=== PATIENT | male | born 1970 | race Caucasian/White ===

== ENCOUNTER 2021-10-18 08:15 | Emergency (ER) | payer BC ==
[2021-10-18 08:21] VITALS: BP 142/76; PULSE 110; RESP 18; TEMP 97.7
[2021-10-18] MEDS ORDERED: DEXAMETHASONE SOD PHOSPHATE 10 MG/ML 1 ML VIAL IM STA (08:29)
--- NOTE | 2021-10-18 08:35 | ED ---
General Adult HPI - General Chief complaint: Skin/Abscess/Foreign Body Stated complaint: allergic reaction Time Seen by Provider: 10/18/21 08:17 Source: patient, RN notes reviewed, old records reviewed Mode of arrival: ambulatory Limitations: no limitations - History of Present Illness Initial comments: 51-year-old male presented for evaluation of rash. Rash began on the patient's forearms, and his neck after he had been removing some brush and some khris that were covering at tree. He is not certain if this was poison carrie. He developed a rash shortly after this with some swelling, and irritation of neck, forearms, and armpits. He did note some yellow drainage and weeping fluid, from his neck. - Related Data Previous Rx's Medication Instructions Recorded predniSONE 50 mg PO DAILY #5 tab 10/18/21 Allergies Allergy/AdvReac Type Severity Reaction Status Date / Time acetaminophen [From Vicodin] AdvReac Itching Verified 10/18/21 08:21 hydrocodone [From Vicodin] AdvReac Itching Verified 10/18/21 08:21 Review of Systems ROS Statement: Those systems with pertinent positive or pertinent negative responses have been documented in the HPI. ROS Other: All systems not noted in ROS Statement are negative. Past Medical History Past Medical History: No Reported History History of Any Multi-Drug Resistant Organisms: None Reported Past Surgical History: Hernia Repair Past Psychological History: No Psychological Hx Reported Smoking Status: Current every day smoker Past Alcohol Use History: Occasional Past Drug Use History: None Reported General Exam Limitations: no limitations General appearance: alert, in no apparent distress Head exam: Present: atraumatic, normocephalic Eye exam: Present: normal appearance, PERRL ENT exam: Present: normal exam Neck exam: Present: normal inspection. Absent: tenderness, meningismus Respiratory exam: Present: normal lung sounds bilaterally. Absent: respiratory distress, wheezes Cardiovascular Exam: Present: regular rate, normal rhythm GI/Abdominal exam: Present: soft. Absent: distended, tenderness Extremities exam: Present: normal capillary refill. Absent: pedal edema Neurological exam: Present: alert, oriented X3, CN II-XII intact, normal gait. Absent: motor sensory deficit Psychiatric exam: Present: normal affect, normal mood Skin exam: Present: vesicles (Vesicular bullous rash on the neck and bilateral forearms) Course Vital Signs 10/18/21 08:16 Temperature 97.7 F Pulse Rate 110 H Respiratory 18 Rate Blood Pressure 142/76 O2 Sat by Pulse 96 Oximetry Medical Decision Making - Medical Decision Making 51-year-old male with history and rash concerning for poison carrie exposure. Patient had taken topical steroids, Benadryl and Claritin at home without relief. He will be prescribed oral steroids. He should follow-up with his primary care physician. Disposition Clinical Impression: Contact dermatitis, Poison carrie dermatitis Disposition: HOME SELF-CARE Condition: Good Instructions (If sedation given, give patient instructions): Poison Carrie (ED) Additional Instructions: . Please return with worsening or changing symptoms. Prescriptions: predniSONE 50 mg PO DAILY #5 tab Is patient prescribed a controlled substance at d/c from ED?: No Referrals: None,Stated [Primary Care Provider] - 1-2 days Time of Disposition: 08:34
== END 2021-10-18 08:53 | disposition home or self-care (01) ==
LOC: EC 08:15
DX: L23.7 Allergic contact dermatitis due to plants, except food (principal); F17.200 Nicotine dependence, unspecified, uncomplicated
CPT/HCPCS: 99282; 96372; J1100

== ENCOUNTER 2021-10-24 08:33 | Emergency (ER) | payer BC ==
[2021-10-24 08:42] VITALS: BP 120/83; PULSE 86; RESP 18; TEMP 97.8
[2021-10-24] MEDS ORDERED: methylPREDNISolone SOD SUCCI 125 MG/2 ML VIAL IM ONE (08:50)
--- NOTE | 2021-10-24 08:52 | ED ---
Skin/Abscess/FB HPI - General Chief complaint: Skin/Abscess/Foreign Body Stated complaint: Revisit-rash Time Seen by Provider: 10/24/21 08:42 Source: patient, RN notes reviewed Mode of arrival: ambulatory Limitations: no limitations - History of Present Illness Initial comments: 51-year-old male presents emergency Department chief complaint of her rash. He is seeing a 60s ago for rashes diagnosis poison carrie. He states is getting better but states that the rash returned. Steroids. Patient is very itchy swelling the cat in the past. Patient states he was working on the lemus. Patient denies any difficulty breathing. - Related Data Previous Rx's Medication Instructions Recorded predniSONE 50 mg PO DAILY #5 tab 10/18/21 predniSONE 10 mg PO DIRECTED #30 tab 10/24/21 predniSONE 10 mg PO DIRECTED #30 tab 10/24/21 Allergies Allergy/AdvReac Type Severity Reaction Status Date / Time acetaminophen [From Vicodin] AdvReac Itching Verified 10/24/21 08:41 hydrocodone [From Vicodin] AdvReac Itching Verified 10/24/21 08:41 Review of Systems ROS Statement: Those systems with pertinent positive or pertinent negative responses have been documented in the HPI. ROS Other: All systems not noted in ROS Statement are negative. Past Medical History Past Medical History: No Reported History History of Any Multi-Drug Resistant Organisms: None Reported Past Surgical History: Hernia Repair Past Psychological History: No Psychological Hx Reported Smoking Status: Current every day smoker Past Alcohol Use History: Occasional Past Drug Use History: None Reported General Exam Limitations: no limitations General appearance: alert, in no apparent distress Head exam: Present: atraumatic, normocephalic, normal inspection Eye exam: Present: normal appearance, PERRL, EOMI. Absent: scleral icterus, conjunctival injection, periorbital swelling ENT exam: Present: normal exam, normal oropharynx, mucous membranes moist Neck exam: Present: normal inspection, full ROM. Absent: tenderness, meningismus, lymphadenopathy Respiratory exam: Present: normal lung sounds bilaterally. Absent: respiratory distress, wheezes, rales, rhonchi, stridor Cardiovascular Exam: Present: regular rate, normal rhythm, normal heart sounds. Absent: systolic murmur, diastolic murmur, rubs, gallop, clicks GI/Abdominal exam: Present: soft, normal bowel sounds. Absent: distended, ten derness, guarding, rebound, rigid Neurological exam: Present: alert Skin exam: Present: warm, dry, intact, normal color, rash Course Vital Signs 10/24/21 08:38 Temperature 97.8 F Pulse Rate 86 Respiratory 18 Rate Blood Pressure 120/83 O2 Sat by Pulse 96 Oximetry Medical Decision Making - Medical Decision Making Patient we given steroid prescription. Patient advised to continue antihistamines. Patient will return for worsening changes symptoms. Disposition Clinical Impression: Poison carrie dermatitis Disposition: HOME SELF-CARE Condition: Stable Instructions (If sedation given, give patient instructions): Poison Carrie (ED) Additional Instructions: Please return to the Emergency Department if symptoms worsen or any other concerns. Prescriptions: predniSONE 10 mg PO DIRECTED #30 tab predniSONE 10 mg PO DIRECTED #30 tab Is patient prescribed a controlled substance at d/c from ED?: No Referrals: Juventino Gentile DO [Primary Care Provider] - 1-2 days Time of Disposition: 08:52
== END 2021-10-24 09:01 | disposition home or self-care (01) ==
LOC: EC 08:33
DX: L23.7 Allergic contact dermatitis due to plants, except food (principal); F17.200 Nicotine dependence, unspecified, uncomplicated; Z88.5 Allergy status to narcotic agent; Z88.6 Allergy status to analgesic agent; Z72.89 Other problems related to lifestyle
CPT/HCPCS: 99282; 96372; J2930

== ENCOUNTER 2024-08-29 22:15 | Inpatient (IN) | payer BC ==
[2024-08-29] MEDS: KETOROLAC 15 MG/ML 1 ML VIAL IVP STA (23:46)
--- NOTE | 2024-08-30 00:10 | ED ---
Abdominal Pain HPI <Heather Hinds - Last Filed: 08/30/24 08:40> - General Source: patient Mode of arrival: ambulatory Limitations: no limitations <MillerLaura - Last Filed: 08/30/24 18:59> - General Chief Complaint: Abdominal Pain Stated Complaint: Abd pain - History of Present Illness Initial Comments: Patient is a 54-year-old male past medical history of diabetes presenting today for epigastric abdominal pain x 1 night. Associated nonbloody nonbilious emesis. No melena or hematochezia. No history of alcoholism. Surgical history includes a prior hernia repair. Chest pain or shortness of breath. Denies new jaundice. (Heather) 54 year old male with past medical history of Diabetes who presents with abdominal pain with associated nausea & vomiting. States it started around 4:3 0pm and has been getting worse. Currently rating a 9/10. Patient denies history of kidney stones. States he quit smoking 1 year ago but has been feeling bloated. Denies history of heavy alcohol use or use of recreational substances. Denies CP, SOB, diarrhea, fever, chills, urinary or bowel complaints. (Laura Miller) - Related Data Home Medications Medication Instructions Recorded Confirmed No Known Home Medications 08/30/24 08/30/24 Allergies Allergy/AdvReac Type Severity Reaction Status Date / Time hydrocodone [From Vicodin] Allergy Itching/Hiv Verified 08/30/24 07:13 es Review of Systems ROS Other: All systems not noted in ROS Statement are negative. <Heather Hinds - Last Filed: 08/30/24 08:40> ROS Other: All systems not noted in ROS Statement are negative. Constitutional: Denies: fever, chills Respiratory: Denies: cough, dyspnea Cardiovascular: Denies: chest pain, palpitations Gastrointestinal: Reports: abdominal pain, nausea, vomiting. Denies: diarrhea, constipation, hematemesis, melena Genitourinary: Denies: urgency, dysuria Musculoskeletal: Denies: back pain Neurological: Denies: headache, weakness <MillerLaura - Last Filed: 08/30/24 18:59> ROS Statement: Those systems with pertinent positive or pertinent negative responses have been documented in the HPI. Past Medical History Past Medical History: No Reported History History of Any Multi-Drug Resistant Organisms: None Reported Past Surgical History: Hernia Repair Past Psychological History: No Psychological Hx Reported Smoking Status: Current every day smoker Past Alcohol Use History: Occasional Past Drug Use History: None Reported <Laura Miller - Last Filed: 08/30/24 18:59> General Exam Limitations: no limitations General appearance: alert, anxious Respiratory exam: Present: normal lung sounds bilaterally. Absent: respiratory distress, wheezes, rales Cardiovascular Exam: Present: regular rate, normal rhythm GI/Abdominal exam: Present: soft, tenderness. Absent: distended, guarding, rebound (epigastric ) Back exam: Absent: CVA tenderness (R), CVA tenderness (L) Neurological exam: Present: alert, oriented X3 Psychiatric exam: Present: normal affect, normal mood Skin exam: Present: warm, dry, intact <Laura Miller - Last Filed: 08/30/24 18:59> Course Vital Signs 08/29/24 08/30/24 22:23 03:56 Temperature 97.5 F L 97.7 F Pulse Rate 126 H 98 Respiratory 22 17 Rate Blood Pressure 139/84 112/66 O2 Sat by Pulse 94 L 94 L Oximetry Medical Decision Making - Lab Data Result diagrams: 08/30/24 07:40 08/30/24 00:14 <Heather Hinds - Last Filed: 08/30/24 08:40> - Lab Data Result diagrams: 08/30/24 07:40 08/30/24 07:40 <Laura Miller - Last Filed: 08/30/24 18:59> - Medical Decision Making I personally saw the patient and performed the critical portion of the service. I discussed the patient care with the resident physician. I directed management, care planning and final disposition of the patient. This includes, but not limited to, review of all lab work, radiological studies, EKG's, consultations, vital signs, and nursing notes. EKG interpreted by me (3pts min.) Sinus tachycardia, rate 106 bpm IL interval 166 ms QT/QTc 322/3 4 ms, normal axis, no ST elevations or depressions, no arrhythmia X-Rays interpreted by me (1 pt min.) @Personally reviewed x-ray KUB, I see no evidence of obstruction, no concerning calcifications concerning with ureterolithiasis I agrees radiologist interpretation CT interpreted by me ( 1pt min.) @I personally reviewed CT scan, appears to show fat stranding around pancreas consistent with pancreatitis, no signs of bowel obstruction or appendicitis I agree with radiologist interpretation U/S interpreted by me (1 pt min.) @Personally reviewed ultrasound,, bile duct does not appear dilated, gallbladder wall does not appear thickened agrees radiologist interpretation. Reviewed ultrasound renal, I see no evidence of hydronephrosis I agree with radiologist interpretation Patient is a 54-year-old gentleman presenting today for 1 night of epigastric abdominal pain nausea and vomiting. Labs reflective of acute pancreatitis with a lipase of greater than 20,000, AST/ALT are also elevated, T. bili is within normal limits, patient has no right upper quadrant tenderness on exam and a negative Segovia sign. Ultrasound of the gallbladder showed sludge but no common bile duct dilation. CT abdomen pelvis was reflected of pancreatitis. Patient's pain became controlled with morphine, IV fluids. Antibiotics were given empirically due to elevated white blood cell count and lactic though I suspect that these were more likely elevated secondary to nausea, vomiting and pancreatitis. Patient was discussed with Dr. Coello [facility], who kindly accepted patient for admission. GI consult was placed. Critical care time of 35 minutes excluding separately billable procedures was spent in conjunction with critical care activities provided by the Resident and Attending simultaneously. I was present during [no procedures] for all critical portions of the procedure and as immediately available to furnish service during the entire procedure. (Heather Hinds) Was pt. sent in by a medical professional or institution (, PA, [employer], urgent care, hospital, or longterm...) When possible be specific @ -No Did you speak to anyone other than the patient for history (EMS, parent, family, police, friend...)? What history was obtained from this source @ -No Did you review nursing and triage notes (agree or disagree)? Why? @ -I reviewed and agree with nursing and triage notes Were old charts reviewed (outside hosp., previous admission, EMS record, old EKG, old radiological studies, urgent care reports/EKG's, longterm records)? Report findings @ -No old charts were reviewed Differential Diagnosis? @ -Differential Abdominal Pain Men: Appendicitis, cholecystitis, diverticulosis, ischemic bowel, pancreatitis, hepatitis, UTI, gastroenteritis, AAA, incarcerated hernia, bowel obstruction, constipation, inflammatory bowel, hepatitis, peptic ulcer disease, splenic infarction, perforated viscus, testicular torsion, this is not meant to be an all-inclusive list EKG interpreted by me (3pts min.). @ -EKG as interpreted by me shows sinus tachycardia rate of 106 bpm, QTc of 384 normal, no acute ST wave changes. X-rays interpreted by me (1pt min.). @ -KUB not showing signs of obstruction. CT interpreted by me (1pt min.). @ -CT showed fat stranding around pancreas suggestive of pancreatitis. U/S interpreted by me (1pt. min.). @ -GBUS showed some sludge but no CBD dilatation What testing was considered but not performed or refused? (CT, X-rays, U/S, labs)? Why? @ -None What meds were considered but not given or refused? Why? @ -None Did you discuss the management of the patient with other professionals (professionals i.e. , PA, [employer], lab, RT, psych nurse, social service agency director, logistics program manager, teacher, biological technical officer, geriatric case manager)? Give summary @ -Case was discussed with ED attending physician Dr. Hinds. Case was discussed with [facility] hospitalist who accepted admission. Was smoking cessation discussed for >3mins.? @ -No Was critical care preformed (if so, how long)? @ -No Were there social determinants of health that impacted care today? How? (Homelessness, low income, unemployed, alcoholism, drug addiction, transportation, low edu. Level, literacy, decrease access to med. care, detention, rehab)? @ -No Was there de-escalation of care discussed even if they declined (Discuss DNR or withdrawal of care, Hospice)? DNR status @ -No What co-morbidities impacted this encounter? (DM, HTN, Smoking, COPD, CAD, Cancer, CVA, ARF, Chemo, Hep., AIDS, mental health diagnosis, sleep apnea, morbid obesity)? @ -None Was patient admitted / discharged? Hospital course, mention meds given and route, prescriptions, significant lab abnormalities, going to OR and other pertinent info. @ -Case was discussed with ED attending physician Dr. Hinds. Labs were remarkable for pancreatitis & leukocytosis. CT abdomen pelvis was suggestive of pancreatitis. KUB did not show obstruction or kidney stones. Gallbladder ultrasound showed sludge without dilatation of CBD. Prophylactic dose of Cefepime& Flagyl given. Patient received IVF and morphine. Case was discussed with [facility] hospitalist who accepted admission. GI was consulted. Undiagnosed new problem with uncertain prognosis? @ -No Drug Therapy requiring intensive monitoring for toxicity (Heparin, Nitro, Insulin, Cardizem)? @ -No Were any procedures done? @ -No Diagnosis/symptom? @ -Pancreatitis Acute, or Chronic, or Acute on Chronic? @ -Acute Uncomplicated (without systemic symptoms) or Complicated (systemic symptoms)? @ -Default Side effects of treatment? @ -No Exacerbation, Progression, or Severe Exacerbation? @ -No Poses a threat to life or bodily function? How? (Chest pain, [place], [place], pneumonia, PE, COPD, DKA, ARF, appy, cholecystitis, CVA, Diverticulitis, Homicidal, Suicidal, threat to staff... and all critical care pts) @ -No (Laura Miller) - Lab Data Lab Results 08/30/24 08/30/24 08/30/24 Range/Units 00:14 00:14 00:14 WBC 19.52 H (4.50-10.00) 10*3/uL RBC 5.34 (4.40-5.60) 10*6/uL Hgb 15.9 (13.0-17.0) g/dL Hct 46.3 (39.6-50.0) % MCV 86.7 (80.0-97.0) fL MCH 29.8 (27.0-32.0) pg MCHC 34.3 (32.0-37.0) g/dL Plt Count 251 (140-440) 10*3/uL MPV 10.2 (9.5-12.2) fL Immature Gran % (Auto) 0.4 % Neutrophils % 77.0 % Lymphocytes % 13.9 % Monocytes % 7.8 % Eosinophils % 0.5 % Basophils % 0.4 % Immature Gran # 0.08 H (0.00-0.04) 10*3/uL Neutrophils # 15.04 H (1.80-7.70) 10*3/uL Lymphocytes # 2.71 (0.90-5.00) 10*3/uL Monocytes # 1.53 H (0.20-1.00) 10*3/uL Eosinophils # 0.09 (0.04-0.35) 10*3/uL Basophils # 0.07 (0.00-0.10) 10*3/uL PT 11.4 (10.0-12.5) sec INR 1.0 (<1.2) APTT 22.3 (22.0-30.0) sec Sodium 140 (137-145) mmol/L Potassium 4.0 (3.5-5.1) mmol/L Chloride 97 L (98-107) mmol/L Carbon Dioxide 31 H (22-30) mmol/L Anion Gap 12 mmol/L BUN 22 H (9-20) mg/dL Creatinine 1.53 H (0.66-1.25) mg/dL Est GFR (CKD-EPI)AfAm 59 (>60 ml/min/1.73 sqM) Est GFR (CKD-EPI)NonAf 51 (>60 ml/min/1.73 sqM) Glucose 174 H (74-99) mg/dL Lactic Ac Sepsis Rflx Plasma Lactic Acid Nicola (0.7-2.0) mmol/L Calcium 10.3 H (8.4-10.2) mg/dL Total Bilirubin 1.0 (0.2-1.3) mg/dL AST 181 H (17-59) U/L ALT 125 H (4-49) U/L Alkaline Phosphatase 97 (38-126) U/L Total Protein 7.4 (6.3-8.2) g/dL Albumin 4.3 (3.5-5.0) g/dL Lipase >54627 H (23-300) U/L Urine Color Urine Appearance (Clear) Urine pH (5.0-8.0) Ur Specific Pipestem (1.001-1.035) Urine Protein (Negative) Urine Glucose (UA) (Negative) Urine Ketones (Negative) Urine Blood (Negative) Urine Nitrite (Negative) Urine Bilirubin (Negative) Urine Urobilinogen (<2.0) mg/dL Ur Leukocyte Esterase (Negative) 08/30/24 08/30/24 08/30/24 Range/Units 00:14 00:19 00:58 WBC (4.50-10.00) 10*3/uL RBC (4.40-5.60) 10*6/uL Hgb (13.0-17.0) g/dL Hct (39.6-50.0) % MCV (80.0-97.0) fL MCH (27.0-32.0) pg MCHC (32.0-37.0) g/dL Plt Count (140-440) 10*3/uL MPV (9.5-12.2) fL Immature Gran % (Auto) % Neutrophils % % Lymphocytes % % Monocytes % % Eosinophils % % Basophils % % Immature Gran # (0.00-0.04) 10*3/uL Neutrophils # (1.80-7.70) 10*3/uL Lymphocytes # (0.90-5.00) 10*3/uL Monocytes # (0.20-1.00) 10*3/uL Eosinophils # (0.04-0.35) 10*3/uL Basophils # (0.00-0.10) 10*3/uL PT (10.0-12.5) sec INR (<1.2) APTT (22.0-30.0) sec Sodium (137-145) mmol/L Potassium (3.5-5.1) mmol/L Chloride (98-107) mmol/L Carbon Dioxide (22-30) mmol/L Anion Gap mmol/L BUN (9-20) mg/dL Creatinine (0.66-1.25) mg/dL Est GFR (CKD-EPI)AfAm (>60 ml/min/1.73 sqM) Est GFR (CKD-EPI)NonAf (>60 ml/min/1.73 sqM) Glucose (74-99) mg/dL Lactic Ac Sepsis Rflx Y Plasma Lactic Acid Nicola 2.6 H* (0.7-2.0) mmol/L Calcium (8.4-10.2) mg/dL Total Bilirubin (0.2-1.3) mg/dL AST (17-59) U/L ALT (4-49) U/L Alkaline Phosphatase (38-126) U/L Total Protein (6.3-8.2) g/dL Albumin (3.5-5.0) g/dL Lipase (23-300) U/L Urine Color Yellow Urine Appearance Clear (Clear) Urine pH 7.0 (5.0-8.0) Ur Specific Pipestem 1.018 (1.001-1.035) Urine Protein Trace H (Negative) Urine Glucose (UA) Negative (Negative) Urine Ketones Negative (Negative) Urine Blood Negative (Negative) Urine Nitrite Negative (Negative) Urine Bilirubin Negative (Negative) Urine Urobilinogen <2.0 (<2.0) mg/dL Ur Leukocyte Esterase Negative (Negative) 08/30/24 Range/Units 05:50 WBC (4.50-10.00) 10*3/uL RBC (4.40-5.60) 10*6/uL Hgb (13.0-17.0) g/dL Hct (39.6-50.0) % MCV (80.0-97.0) fL MCH (27.0-32.0) pg MCHC (32.0-37.0) g/dL Plt Count (140-440) 10*3/uL MPV (9.5-12.2) fL Immature Gran % (Auto) % Neutrophils % % Lymphocytes % % Monocytes % % Eosinophils % % Basophils % % Immature Gran # (0.00-0.04) 10*3/uL Neutrophils # (1.80-7.70) 10*3/uL Lymphocytes # (0.90-5.00) 10*3/uL Monocytes # (0.20-1.00) 10*3/uL Eosinophils # (0.04-0.35) 10*3/uL Basophils # (0.00-0.10) 10*3/uL PT (10.0-12.5) sec INR (<1.2) APTT (22.0-30.0) sec Sodium (137-145) mmol/L Potassium (3.5-5.1) mmol/L Chloride (98-107) mmol/L Carbon Dioxide (22-30) mmol/L Anion Gap mmol/L BUN (9-20) mg/dL Creatinine (0.66-1.25) mg/dL Est GFR (CKD-EPI)AfAm (>60 ml/min/1.73 sqM) Est GFR (CKD-EPI)NonAf (>60 ml/min/1.73 sqM) Glucose (74-99) mg/dL Lactic Ac Sepsis Rflx Plasma Lactic Acid Nicola 0.8 (0.7-2.0) mmol/L Calcium (8.4-10.2) mg/dL Total Bilirubin (0.2-1.3) mg/dL AST (17-59) U/L ALT (4-49) U/L Alkaline Phosphatase (38-126) U/L Total Protein (6.3-8.2) g/dL Albumin (3.5-5.0) g/dL Lipase (23-300) U/L Urine Color Urine Appearance (Clear) Urine pH (5.0-8.0) Ur Specific Pipestem (1.001-1.035) Urine Protein (Negative) Urine Glucose (UA) (Negative) Urine Ketones (Negative) Urine Blood (Negative) Urine Nitrite (Negative) Urine Bilirubin (Negative) Urine Urobilinogen (<2.0) mg/dL Ur Leukocyte Esterase (Negative) Disposition <Heather Hinds - Last Filed: 08/30/24 08:40> <Laura Miller - Last Filed: 08/30/24 18:59> Clinical Impression: Acute pancreatitis Disposition: ADMITTED IP TO THIS [facility] Condition: Stable
[2024-08-30] MEDS: SODIUM CHLORIDE 0.9% 1,000 ML IV ONE ×2 (00:31→02:45)
[2024-08-30] MEDS: MORPHINE SULFATE 2 MG/ML SYRINGE IVP STA (00:32)
[2024-08-30] MEDS: CYCLOBENZAPRINE 10 MG TAB PO STA (00:33)
[2024-08-30 00:40] LABS: Appearance,Urine Clear (Clear); Bilirubin,Urine Negative (Negative); Blood,Urine Negative (Negative); Color,Urine Yellow; Glucose,Urine (UA) Negative (Negative); Ketones,Urine Negative (Negative); Leukocyte Esterase,Urine Negative (Negative); Nitrite,Urine Negative (Negative); Protein,Urine Trace (Negative); Specific Gravity,Urine 1.018 (1.001-1.035); Urobilinogen,Urine <2.0 mg/dL (<2.0)
[2024-08-30 00:54] LABS: Basophils # (A) 0.07 10*3/uL (0.00-0.10); Basophils % (A) 0.4 %; Eosinophils # (A) 0.09 10*3/uL (0.04-0.35); Eosinophils % (A) 0.5 %; HCT 46.3 % (39.6-50.0); HGB 15.9 g/dL (13.0-17.0); Lymphocytes # (A) 2.71 10*3/uL (0.90-5.00); Lymphocytes % (A) 13.9 %; MCH 29.8 pg (27.0-32.0); MCHC 34.3 g/dL (32.0-37.0); MCV 86.7 fL (80.0-97.0); Mean Platelet Volume 10.2 fL (9.5-12.2); Monocytes # (A) 1.53 10*3/uL (0.20-1.00); Monocytes % (A) 7.8 %; Neutrophils # (A) 15.04 10*3/uL (1.80-7.70); Platelet Count 251 10*3/uL (140-440); RBC 5.34 10*6/uL (4.40-5.60); RDW 12.6 % (11.5-14.5); WBC 19.52 10*3/uL (4.50-10.00)
[2024-08-30 00:59] LABS: ALT 125 U/L (4-49); AST 181 U/L (17-59); African American GFR (CKD) 59 (>60 ml/min/1.73 sqM); Albumin 4.3 g/dL (3.5-5.0); Alkaline Phosphatase 97 U/L (38-126); Anion Gap 12 mmol/L; Blood Urea Nitrogen 22 mg/dL (9-20); Calcium 10.3 mg/dL (8.4-10.2); Carbon Dioxide 31 mmol/L (22-30); Chloride 97 mmol/L (98-107); Glucose 174 mg/dL (74-99); Non-African American GFR(CKD) 51 (>60 ml/min/1.73 sqM); Sodium 140 mmol/L (137-145); Total Protein 7.4 g/dL (6.3-8.2)
[2024-08-30 01:01] LABS: Partial Thromboplastin Time 22.3 sec (22.0-30.0); Prothrombin Time 11.4 sec (10.0-12.5)
[2024-08-30 01:21] LABS: Lipase >20000 U/L (23-300)
--- NOTE | 2024-08-30 01:35 | US ---
Exam: US RENAL DATE OF EXAM: 08/30/2024 COMPARISON: NONE CLINICAL INDICATION: Male, 54 years old with history of abdominal pain; N/V, no h/o renal stones, no gross hematuria TECHNIQUE: Grayscale imaging of the bilateral kidneys and urinary bladder. 34 images FINDINGS: Right Kidney: 11.2 x 5.0 x 5.3 cm. Normal echotexture and contour. Left Kidney: 12.3 x 5.1 x 5.4 cm. Normal echotexture and contour. Right Kidney: No hydronephrosis or masses seen Left Kidney: No hydronephrosis or masses seen Bladder: Within normal limits. Underdistended. Impression: Unremarkable kidneys and urinary bladder.
--- NOTE | 2024-08-30 01:42 | XR ---
EXAM: XR Abdomen, 1 View CLINICAL HISTORY: Pt presents to ED for c/o upper abdominal pain starting today with nausea and vomiting. TECHNIQUE: Frontal upright view of the abdomen/pelvis. 2 images COMPARISON: No relevant prior studies available. FINDINGS: Gastrointestinal tract: Nonspecific bowel gas pattern. Moderate amount of stool in the colon. No dilation. Bones/joints: No fracture or dislocation. IMPRESSION: No acute findings.
[2024-08-30] MEDS: SODIUM CHLORIDE 0.9% 1,000 ML IV SCH ×2 (02:46→13:31)
[2024-08-30] MEDS: MORPHINE SULFATE 4 MG/ML SYRINGE IVP STA (02:46)
--- NOTE | 2024-08-30 03:28 | US ---
Exam: US GALLBLADDER DATE OF EXAM: 08/30/2024 COMPARISON: CT abdomen and pelvis from today. CLINICAL INDICATION: Male, 54 years old with history of abdominal pain; elevated lfts, possible pancreatitis, N/V TECHNIQUE: Grayscale and color Doppler imaging of the right upper quadrant was performed. 30 images Limitation: bowel gas obscures pancreas and left lobe of liver FINDINGS: EXAM MEASUREMENTS: Liver Length: 16.4 cm Gallbladder Wall: 0.2 cm CBD: 0.7 cm Right Kidney: 11.0 x 5.3 x 5.2 cm Pancreas: not seen Liver: left lobe obscured, otherwise, unremarkable. Echogenic liver parenchyma. Gallbladder: sludge with possible small stone, no wall thickening Evidence for sonographic Segovia's sign: no CBD: wnl Right Kidney: wnl Impression: Sludge with possible small stone. Fatty liver
[2024-08-30] MEDS: metroNIDAZOLE-NS PMX 500 MG in SALINE 1 100ML.BAG IVPB STA (03:49)
--- NOTE | 2024-08-30 04:33 | CT ---
EXAM: CT Abdomen and Pelvis With Intravenous Contrast CLINICAL HISTORY: abdominal pain TECHNIQUE: Axial computed tomography images of the abdomen and pelvis with intravenous contrast. Coronal and sagittal reconstructions are performed. CTDI is 30 mGy and DLP is 1683 mGy-cm. This CT exam was performed using one or more of the following dose reduction techniques: automated exposure control, adjustment of the mA and/or kV according to patient size, and/or use of iterative reconstruction technique. 786 images COMPARISON: Called her ultrasound from today. FINDINGS: Lung bases: Small amount of stranding surrounding edematous appearing pancreas extending to upper pelvis suggests interstitial edematous pancreatitis. No associated gas or fluid collection. Mediastinum: Visualized distal esophagus is slightly dilated with reflux fluid. ABDOMEN: Liver: Suspect diffuse fatty infiltration of the liver. Gallbladder and bile ducts: Unremarkable. No calcified stones. No ductal dilation. Pancreas: See above. Spleen: Unremarkable. No splenomegaly. Adrenals: Unremarkable. No mass. Kidneys and ureters: Unremarkable. No solid mass. No hydronephrosis. Stomach and bowel: Circumferential wall thickening of the duodenum measuring up to 10 mm. No obstruction. PELVIS: Appendix: No findings to suggest acute appendicitis. Bladder: Unremarkable. No mass. Reproductive: Unremarkable as visualized. ABDOMEN and PELVIS: Intraperitoneal space: Unremarkable. No free air. No significant fluid collection. Bones/joints: Osteopenia. Moderate degenerative changes. Soft tissues: Unremarkable. Vasculature: Unremarkable. No abdominal aortic aneurysm. Lymph nodes: Unremarkable. No enlarged lymph nodes. IMPRESSION: 1. Interstitial edematous pancreatitis. No associated gas or fluid collection. 2. Circumferential wall thickening of the duodenum may suggest reactive duodenitis. 3. Visualized distal esophagus is slightly dilated with reflux fluid.
[2024-08-30] MEDS: CEFEPIME 2 GM in SODIUM CHLORIDE 0.9% 100 ML IVPB STA (05:02)
[2024-08-30] MEDS ORDERED: NALOXONE 0.4 MG/ML 1 ML VIAL IV PRN (06:28)
[2024-08-30 08:02] LABS: Basophils # (A) 0.03 10*3/uL (0.00-0.10); Basophils % (A) 0.2 %; Eosinophils # (A) 0.01 10*3/uL (0.04-0.35); Eosinophils % (A) 0.1 %; HCT 43.3 % (39.6-50.0); HGB 14.6 g/dL (13.0-17.0); Lymphocytes # (A) 1.34 10*3/uL (0.90-5.00); MCH 29.4 pg (27.0-32.0); MCHC 33.7 g/dL (32.0-37.0); MCV 87.3 fL (80.0-97.0); Mean Platelet Volume 9.9 fL (9.5-12.2); Monocytes # (A) 1.13 10*3/uL (0.20-1.00); Monocytes % (A) 7.6 %; Neutrophils # (A) 12.39 10*3/uL (1.80-7.70); Neutrophils % (A) 82.7 %; Platelet Count 216 10*3/uL (140-440); RBC 4.96 10*6/uL (4.40-5.60); RDW 12.9 % (11.5-14.5); WBC 14.96 10*3/uL (4.50-10.00)
[2024-08-30 08:09] LABS: ALT 123 U/L (4-49); AST 111 U/L (17-59); African American GFR (CKD) 74 (>60 ml/min/1.73 sqM); Albumin 3.8 g/dL (3.5-5.0); Albumin/Globulin Ratio 1.4; Alkaline Phosphatase 83 U/L (38-126); Anion Gap 8 mmol/L; Blood Urea Nitrogen 20 mg/dL (9-20); Carbon Dioxide 26 mmol/L (22-30); Chloride 103 mmol/L (98-107); Globulin 2.8 g/dL; Glucose 130 mg/dL (74-99); Non-African American GFR(CKD) 64 (>60 ml/min/1.73 sqM); Sodium 137 mmol/L (137-145); Total Bilirubin 0.9 mg/dL (0.2-1.3); Total Protein 6.6 g/dL (6.3-8.2)
[2024-08-30] MEDS: PANTOPRAZOLE 40 MG/10 ML VIAL IV SCH (08:19)
[2024-08-30] MEDS: HYDROmorphone 0.5 MG/0.5 ML SYRINGE IVP PRN (08:20)
[2024-08-30 08:46] LABS: Lipase 8086 U/L (23-300)
--- NOTE | 2024-08-30 12:21 | P.CONS ---
History of Present Illness - Reason for Consult Consult date: 08/30/24 Pancreatitis Requesting physician: Heather Hinds - Chief Complaint Abdominal pain - History of Present Illness This a pleasant 54-year-old male who presented to the emergency department last night with complaints of severe sharp abdominal pain in the upper abdomen radiat ing around to the left side in his back. States that yesterday afternoon he started having some abdominal discomfort but after 9:00 he states that he started having severe pain with nausea and vomiting. He was brought into the emergency department was noted to have elevated AST and ALT as well as a lipase greater than 20,000. He had a ultrasound of the gallbladder that reported sludge and a possible small gallstone. Fatty liver. Common bile duct measured 0.7 cm. He had a [address] of the abdomen pelvis that showed edematous pancreatitis and likely reactive duodenitis. Gastroenterology was consulted for pancreatitis. Patient denies any previous history of pancreatitis. States he is in social drinker may drink a couple days a week. Nothing real heavy. Denies any history of gallbladder issues, no new medications. Patient states abdominal pain improved with pain medication. No further nausea or vomiting. He states he has had "GI issues "for as long as he can remember however over the last 1 year duration feels that he has been getting more gassy and bloating. He he does not follow with a PCP. States he did [place] about [place] and states it was normal. He has no history of upper endoscopy. Admitting labs WBC 19.5 hemoglobin 15.9 hematocrit 46 platelet count 251,000 INR 1.0 sodium 140 potassium 4.0 BUN 22 creatinine 1.5 total bilirubin 1.0 AST 181 ALT 125 alkaline phosphatase 97 lipase greater than 20,000 Review of Systems REVIEW OF SYSTEMS: CARDIOPULMONARY: No chest pain or shortness of breath. Gastrointestinal: Abdominal pain mostly in the epigastric region radiating to the left and back. No nausea or vomiting. No hematemesis, coffee-ground emesis. No rectal bleeding, or melena. Complaints of abdominal bloating, reflux. GENITOURINARY: No dysuria or hematuria. MUSCULOSKELETAL: Reports normal range of motion. SKIN: No rashes. No jaundice. ENDOCRINE: No chills, fevers. No excessive weight gain or loss. No polydipsia or polyuria. PSYCHIATRIC: Unremarkable. NEUROLOGY: No change in mental status. Denies dizziness, headache. ENT: Vision unremarkable. CONSTITUTIONAL: No recent weight loss. No fever, chills, night sweats. Past Medical History Past Medical History: No Reported History History of Any Multi-Drug Resistant Organisms: None Reported Past Surgical History: Hernia Repair Past Psychological History: No Psychological Hx Reported Smoking Status: Current every day smoker Past Alcohol Use History: Occasional Past Drug Use History: None Reported Medications and Allergies Home Medications Medication Instructions Recorded Confirmed Type No Known Home Medications 08/30/24 08/30/24 History Allergies Allergy/AdvReac Type Severity Reaction Status Date / Time hydrocodone [From Vicodin] Allergy Itching/Hiv Verified 08/30/24 07:13 es Physical Exam Vitals: Vital Signs Temp Pulse Pulse Resp BP BP Pulse Ox 08/30/24 08:00 98.2 F 100 17 126/78 95 08/30/24 03:56 97.7 F 98 17 112/66 94 L 08/29/24 22:23 97.5 F L 126 H 22 139/84 94 L Intake and Output 08/29/24 08/30/24 08/30/24 22:59 06:59 14:59 Other: Weight 113.398 kg General appearance: The patient is alert, oriented, appears in no acute distress. HET: Head is normocephalic and atraumatic. Conjunctiva pink. Sclera anicteric. Neck: Supple without lymphadenopathy. Trachea midline. Heart: Regular. Lungs: Equal expansion, normal respiratory effort. Abdomen: Soft, epigastric tenderness, nondistended. Skin: No rashes. No jaundice. Extremities: Normal skin color and turgor. No pedal edema. Neurological: No focal deficits. Alert and oriented x3. Results CBC & Chem 7: 08/30/24 07:40 08/30/24 07:40 Labs: Abnormal Lab Results - Last 24 Hours (Table) 08/30/24 08/30/24 08/30/24 Range/Units 00:14 00:14 00:14 WBC 19.52 H (4.50-10.00) 10*3/uL Immature Gran # 0.08 H (0.00-0.04) 10*3/uL Neutrophils # 15.04 H (1.80-7.70) 10*3/uL Monocytes # 1.53 H (0.20-1.00) 10*3/uL Eosinophils # (0.04-0.35) 10*3/uL Chloride 97 L (98-107) mmol/L Carbon Dioxide 31 H (22-30) mmol/L BUN 22 H (9-20) mg/dL Creatinine 1.53 H (0.66-1.25) mg/dL Glucose 174 H (74-99) mg/dL Plasma Lactic Acid Nicola 2.6 H* (0.7-2.0) mmol/L Calcium 10.3 H (8.4-10.2) mg/dL AST 181 H (17-59) U/L ALT 125 H (4-49) U/L Lipase >80771 H (23-300) U/L Urine Protein (Negative) 08/30/24 08/30/24 Range/Units 00:19 07:40 WBC 14.96 H (4.50-10.00) 10*3/uL Immature Gran # 0.06 H (0.00-0.04) 10*3/uL Neutrophils # 12.39 H (1.80-7.70) 10*3/uL Monocytes # 1.13 H (0.20-1.00) 10*3/uL Eosinophils # 0.01 L (0.04-0.35) 10*3/uL Chloride (98-107) mmol/L Carbon Dioxide (22-30) mmol/L BUN (9-20) mg/dL Creatinine (0.66-1.25) mg/dL Glucose (74-99) mg/dL Plasma Lactic Acid Nicola (0.7-2.0) mmol/L Calcium (8.4-10.2) mg/dL AST (17-59) U/L ALT (4-49) U/L Lipase (23-300) U/L Urine Protein Trace H (Negative) Comments: CT abdomen pelvis reports interstitial edematous pancreatitis. No associated gas or fluid collection. Circumferential wall thickening of the duodenum may suggest reactive duodenitis. Visualized distal esophagus is slightly dilated wi th reflux fluid. Gallbladder ultrasound report sludge with possible small stone. Fatty liver. Assessment and Plan (1) Acute pancreatitis Narrative/Plan: 54-year-old male presenting with abdominal pain in the epigastric region radiating to the left upper abdomen and back with his significantly elevated lipase on admission greater than 20,000 and elevated AST and ALT. Abdominal ultrasound reports gallbladder sludge and possible stone, however CT abdomen pelvis reports no gallbladder abnormality, but acute pancreatitis. Likely gallstone pancreatitis without evidence at this time choledochal lithiasis. Recommend medical management. Consult to general surgery. Triglycerides ordered. Current Visit: Yes Status: Acute Code(s): K85.90 - ACUTE PANCREATITIS W ITHOUT NECROSIS OR INFECTION, UNSP SNOMED Code(s): 931152416 Plan: 1. Continue symptomatic supportive care 2. Keep n.p.o. except ice chips 3. Repeat CBC, CMP, lipase and will add triglycerides 4. Aggressive IV hydration 5. Pain medication as needed 6. Antiemetics as needed 7. Protonix 40 mg daily for GI prophylaxis 8. Consult to general surgery 9. Discussed with patient importance of establishing with PCP, further outpatient workup for longstanding history of GERD and abdominal bloating Thank you for this consultation, we will continue to follow. Dr. Scooby Oliva I agree with the dictator's note, documented as a scribe by Ruth Bermudez.
--- NOTE | 2024-08-30 13:25 | P.HPIM ---
History of Present Illness H&P Date: 08/30/24 Chief Complaint: acute abdominal pain Patient is a 54-year-old male with no significant medical history presenting with acute abdominal pain. Patient states the pain started last night at 9 PM and describes it as a sharp, 10/10, abdominal pain located in the upper abdomen that radiates to his back. Patient reports of nausea and 1 episode of nonbloody emesis. Interview patient still with pain in same reason despite being on pain medication. He states he does not have much of an appetite at the moment. Denies any medication changes. Denies having any episodes of pain similar to this. Denies any heavy alcohol use or drug use. Patient states last drink was a week ago. Patient denies any fever, chills, chest pain, shortness of breath, urinary symptoms. EKG independent interpreted displaying sinus tachycardia, rate 106 bpm, QTc 385 Abdominal/pelvis CT intracyst feel edematous pancreatitis, no associated gas or fluid collection, circumferential wall thickening of the duodenum, slightly dilated distal esophagus with reflux fluid Gallbladder ultrasound displaying sludge with possible small stone, fatty liver KUB x-ray displaying no acute findings Labs on admission: Lipase >20,000, WBC 19.52, neutrophils 515.05, immature granulocytes 0.08, CO2 31, BUN 22, creatinine 1.53, lactic acid 2.6 calcium 10.8, AST 181, ALT 125 UA unremarkable with trace urine protein T97.5 F, RI 126, 24, BP 139/84, O2 saturation 94% on room air ED documentation reviewed. Review of systems: Pertinent positives and negatives as discussed in HPI, a complete review of systems was performed and all other systems are negative. Physical examination: Vital signs reviewed General: non toxic, no distress, appears at stated age, normal weight Derm: no unusual rashes/lesions, warm Head: atraumatic, normocephalic, symmetric Eyes: EOMI, anicteric sclera, pupils equal round reactive to light ENT: Nose and ears atraumatic Neck: No cervical lymphadenopathy, trachea midline, supple Mouth: no lip lesion, mucus membranes moist Cardiovascular: S1S2 reg, no murmur, positive dorsalis pedis pulse bilateral, no edema Lungs: CTA bilateral, no rhonchi, no rales, no accessory muscle use Abdominal: soft, nontender to palpation, no guarding Ext: muscle strength 5 out of 5 in all 4 extremities grossly, no gross muscle atrophy Neuro: CN II-XI grossly intact, no gross focal neuro deficits Psych: Alert, oriented to person, place, and time Assessment/Plan: Patient is a 54-year-old male with no significant medical history presenting with acute abdominal pain secondary to acute pancreatitis. #. Acute pancreatitis, likely related to gallstones #. ARRON, improving #. Lactic acidosis, resolved BISAP score of 1 Lipase greater than 20,000 on admission Continue with normal saline at 150 cc an hour Keep patient NPO, will try to advance diet when he can tolerate Pain management with morphine sulfate 4 mg IV every 4 hours as needed ARRON improving with fluid management, creatinine down from 1.53 to 1.27 Triglycerides pending GI note reviewed, continue symptomatic supportive care Surgery consulted F: NS at 100 cc an hour E: Plan as needed N: NPO A: Independently ambulatory at baseline DVT prophylaxis: The patient is admitted with an anticipated less than 2 midnight stay for evaluation of acute pancreatitis. CODE STATUS: Full code Discussed with: Patient Anticipated discharge place: Likely home Brendan Juan MD PGY-1 IM Dictation was produced using [employer] dictation software. please excuse any grammatical, word or spelling errors. I saw and evaluated the patient during the valerio and critical portions of this encounter, and discussed the case in detail with the resident author of this note, I agree with the Assessment and Plan, and my changes, if any, are highlighted in blue. Past Medical History Past Medical History: No Reported History History of Any Multi-Drug Resistant Organisms: None Reported Past Surgical History: Hernia Repair Past Psychological History: No Psychological Hx Reported Smoking Status: Current every day smoker Past Alcohol Use History: Occasional Past Drug Use History: None Reported Medications and Allergies Home Medications Medication Instructions Recorded Confirmed Type No Known Home Medications 08/30/24 08/30/24 History Allergies Allergy/AdvReac Type Severity Reaction Status Date / Time hydrocodone [From Vicodin] Allergy Itching/Hiv Verified 08/30/24 07:13 es Physical Exam Osteopathic Statement: *. No significant issues noted on an osteopathic structural exam other than those noted in the History and Physical/Consult. Vitals: Vital Signs Temp Pulse Pulse Resp BP BP Pulse Ox 08/30/24 08:00 98.2 F 100 17 126/78 95 08/30/24 03:56 97.7 F 98 17 112/66 94 L 08/29/24 22:23 97.5 F L 126 H 22 139/84 94 L Intake and Output 08/29/24 08/30/24 08/30/24 22:59 06:59 14:59 Other: Voiding Method Toilet Weight 113.398 kg 113.398 kg Results CBC & Chem 7: 08/30/24 07:40 08/30/24 07:40 Labs: Abnormal Lab Results - Last 24 Hours (Table) 08/30/24 08/30/24 08/30/24 Range/Units 00:14 00:14 00:14 WBC 19.52 H (4.50-10.00) 10*3/uL Immature Gran # 0.08 H (0.00-0.04) 10*3/uL Neutrophils # 15.04 H (1.80-7.70) 10*3/uL Monocytes # 1.53 H (0.20-1.00) 10*3/uL Eosinophils # (0.04-0.35) 10*3/uL Chloride 97 L (98-107) mmol/L Carbon Dioxide 31 H (22-30) mmol/L BUN 22 H (9-20) mg/dL Creatinine 1.53 H (0.66-1.25) mg/dL Glucose 174 H (74-99) mg/dL Plasma Lactic Acid Nicola 2.6 H* (0.7-2.0) mmol/L Calcium 10.3 H (8.4-10.2) mg/dL AST 181 H (17-59) U/L ALT 125 H (4-49) U/L Lipase >54476 H (23-300) U/L Urine Protein (Negative) 08/30/24 08/30/24 08/30/24 Range/Units 00:19 07:40 07:40 WBC 14.96 H (4.50-10.00) 10*3/uL Immature Gran # 0.06 H (0.00-0.04) 10*3/uL Neutrophils # 12.39 H (1.80-7.70) 10*3/uL Monocytes # 1.13 H (0.20-1.00) 10*3/uL Eosinophils # 0.01 L (0.04-0.35) 10*3/uL Chloride (98-107) mmol/L Carbon Dioxide (22-30) mmol/L BUN (9-20) mg/dL Creatinine 1.27 H (0.66-1.25) mg/dL Glucose 130 H (74-99) mg/dL Plasma Lactic Acid Nicola (0.7-2.0) mmol/L Calcium (8.4-10.2) mg/dL AST 111 H (17-59) U/L ALT 123 H (4-49) U/L Lipase 8086 H (23-300) U/L Urine Protein Trace H (Negative) Thrombosis Risk Factor Assmnt - Choose All That Apply Any of the Below Risk Factors Present?: Yes Each Factor Represents 1 point: Age 41-60 years Other Risk Factors: No Thrombosis Risk Factor Assessment Total Risk Factor Score: 1 Thrombosis Risk Factor Assessment Level: Low Risk
[2024-08-30] MEDS: MORPHINE SULFATE 4 MG/ML SYRINGE IV PRN (13:30)
--- NOTE | 2024-08-30 13:57 | P.GSCN ---
History of Present Illness Consult date: 08/30/24 History of present illness: CHIEF COMPLAINT: Abdominal pain HISTORY OF PRESENT ILLNESS: This is a 54-year-old male who presented to the hospital with complaints of epigastric abdominal pain that radiates around his the upper abdomen to the back. He has been having vomiting. Also reports chills. Symptoms started yesterday around noon after he ate lunch at [employer] with the alejandra Sulma chicken and then pain became more severe around 9 PM after he ate pot roast for dinner. Patient reports that lately he he has been having some sensitivity to greasy food. Patient was found to have acute gallstone pancreatitis. Lipase and LFTs were elevated. Gallbladder ultrasound had reported sludge with possible small gallstone and CT scan had reported edematous pancreatitis. Patient evaluated by GI service who recommended surgical consult. Patient reports the morphine is not adequately controlling his pain. He has no prior history of gallstone pancreatitis. Patient reports he has about 2 alcoholic beverages a week. And denies any cardiac history. Past surgical history does include a bilateral inguinal hernia repair about 10 years ago. He has past history of smoking quit about 13 months ago. Denies being on any blood thinners. PAST MEDICAL HISTORY: See below PAST SURGICAL HISTORY: Bilateral inguinal hernia repair MEDICATIONS: See below ALLERGIES: See below SOCIAL HISTORY: No illicit drug use. Quit smoking 13 months ago. Occasional a lcohol use. REVIEW OF SYSTEMS: CONSTITUTIONAL: Denies fever or chills. HEENT: Denies blurred vision, vision changes, or eye pain. Denies hemoptysis CARDIOVASCULAR: Denies chest pain or pressure. RESPIRATORY: No shortness of breath. GASTROINTESTINAL: See HPI for pertinent findings HEMATOLOGIC: Denies bleeding disorders. GENITOURINARY: Denies any blood in urine or increased urinary frequency. SKIN: Denies pruitis. Denies rash. PHYSICAL EXAM: VITAL SIGNS: Reviewed GENERAL: Well-developed in no acute distress. HEENT: No sclera icterus. Extraocular movements grossly intact. Moist buccal mucosa. Head is atraumatic, normocephalic. No nasal drainage. ABDOMEN: Soft. Nondistended. Tenderness palpation epigastric left upper quadrant right upper quadrant NEUROLOGIC: Alert and oriented. Cranial nerves II through XII grossly intact. LABORATORY DATA: WBC 19.52 down to 14.96 Hgb 14.6 platelets 216 Sodium is 137 potassium 4.0 creatinine 1.27 Lactic acid 2.6 down to 0.8 Total bilirubin 0.9 AST 181 down to 111 ALT 125-123 Lipase 20,000 down to 8086 IMAGING: CT scan abdomen pelvis reports interstitial edematous pancreatitis. No associated gas or fluid collection. Circumferential wall thickening of the duodenum may suggest reactive duodenitis. Visualized distal esophagus is sli ghtly dilated with reflux fluid. Gallbladder ultrasound report sludge with possible small stone. Fatty liver. CBD within normal limits ASSESSMENT: 1. Acute gallstone pancreatitis PLAN: - Patient is tentatively scheduled for laparoscopic cholecystectomy tomorrow with Dr. Leos - N.p.o. after midnight - Keep patient n.p.o. except for ice chips today - Continue IV fluids - Pain management. Dilaudid 1 mg IV every 3 hours added for pain control - Continue antiemetics as needed - Antibiotics added - Repeat labs in a.m. Physician [facility] Keeper note has been reviewed by physician. Signing provider agrees with the documented findings, assessment, and plan of care. Past Medical History Past Medical History: No Reported History History of Any Multi-Drug Resistant Organisms: None Reported Past Surgical History: Hernia Repair Past Psychological History: No Psychological Hx Reported Smoking Status: Current every day smoker Past Alcohol Use History: Occasional Past Drug Use History: None Reported Medications and Allergies Home Medications Medication Instructions Recorded Confirmed Type No Known Home Medications 08/30/24 08/30/24 History Allergies Allergy/AdvReac Type Severity Reaction Status Date / Time hydrocodone [From Vicodin] Allergy Itching/Hiv Verified 08/30/24 07:13 es Surgical - Exam Vital Signs Temp Pulse Resp BP Pulse Ox 97.5 F L 126 H 22 139/84 94 L 08/29/24 22:23 08/29/24 22:23 08/29/24 22:23 08/29/24 22:23 08/29/24 22:23 Results - Labs 08/30/24 07:40 08/30/24 07:40 Abnormal Lab Results - Last 24 Hours (Table) 08/30/24 08/30/24 08/30/24 Range/Units 00:14 00:14 00:14 WBC 19.52 H (4.50-10.00) 10*3/uL Immature Gran # 0.08 H (0.00-0.04) 10*3/uL Neutrophils # 15.04 H (1.80-7.70) 10*3/uL Monocytes # 1.53 H (0.20-1.00) 10*3/uL Eosinophils # (0.04-0.35) 10*3/uL Chloride 97 L (98-107) mmol/L Carbon Dioxide 31 H (22-30) mmol/L BUN 22 H (9-20) mg/dL Creatinine 1.53 H (0.66-1.25) mg/dL Glucose 174 H (74-99) mg/dL Plasma Lactic Acid Nicola 2.6 H* (0.7-2.0) mmol/L Calcium 10.3 H (8.4-10.2) mg/dL AST 181 H (17-59) U/L ALT 125 H (4-49) U/L Lipase >97910 H (23-300) U/L Urine Protein (Negative) 08/30/24 08/30/24 08/30/24 Range/Units 00:19 07:40 07:40 WBC 14.96 H (4.50-10.00) 10*3/uL Immature Gran # 0.06 H (0.00-0.04) 10*3/uL Neutrophils # 12.39 H (1.80-7.70) 10*3/uL Monocytes # 1.13 H (0.20-1.00) 10*3/uL Eosinophils # 0.01 L (0.04-0.35) 10*3/uL Chloride (98-107) mmol/L Carbon Dioxide (22-30) mmol/L BUN (9-20) mg/dL Creatinine 1.27 H (0.66-1.25) mg/dL Glucose 130 H (74-99) mg/dL Plasma Lactic Acid Nicola (0.7-2.0) mmol/L Calcium (8.4-10.2) mg/dL AST 111 H (17-59) U/L ALT 123 H (4-49) U/L Lipase 8086 H (23-300) U/L Urine Protein Trace H (Negative) Diabetes panel 08/30/24 08/30/24 Range/Units 00:14 07:40 Sodium 140 137 (137-145) mmol/L Potassium 4.0 4.0 (3.5-5.1) mmol/L Chloride 97 L 103 (98-107) mmol/L Carbon Dioxide 31 H 26 (22-30) mmol/L BUN 22 H 20 (9-20) mg/dL Creatinine 1.53 H 1.27 H (0.66-1.25) mg/dL Glucose 174 H 130 H (74-99) mg/dL Calcium 10.3 H 9.0 (8.4-10.2) mg/dL AST 181 H 111 H (17-59) U/L ALT 125 H 123 H (4-49) U/L Alkaline Phosphatase 97 83 (38-126) U/L Total Protein 7.4 6.6 (6.3-8.2) g/dL Albumin 4.3 3.8 (3.5-5.0) g/dL Calcium panel 08/30/24 08/30/24 Range/Units 00:14 07:40 Calcium 10.3 H 9.0 (8.4-10.2) mg/dL Albumin 4.3 3.8 (3.5-5.0) g/dL Pituitary panel 08/30/24 08/30/24 Range/Units 00:14 07:40 Sodium 140 137 (137-145) mmol/L Potassium 4.0 4.0 (3.5-5.1) mmol/L Chloride 97 L 103 (98-107) mmol/L Carbon Dioxide 31 H 26 (22-30) mmol/L BUN 22 H 20 (9-20) mg/dL Creatinine 1.53 H 1.27 H (0.66-1.25) mg/dL Glucose 174 H 130 H (74-99) mg/dL Calcium 10.3 H 9.0 (8.4-10.2) mg/dL Adrenal panel 08/30/24 08/30/24 Range/Units 00:14 07:40 Sodium 140 137 (137-145) mmol/L Potassium 4.0 4.0 (3.5-5.1) mmol/L Chloride 97 L 103 (98-107) mmol/L Carbon Dioxide 31 H 26 (22-30) mmol/L BUN 22 H 20 (9-20) mg/dL Creatinine 1.53 H 1.27 H (0.66-1.25) mg/dL Glucose 174 H 130 H (74-99) mg/dL Calcium 10.3 H 9.0 (8.4-10.2) mg/dL Total Bilirubin 1.0 0.9 (0.2-1.3) mg/dL AST 181 H 111 H (17-59) U/L ALT 125 H 123 H (4-49) U/L Alkaline Phosphatase 97 83 (38-126) U/L Total Protein 7.4 6.6 (6.3-8.2) g/dL Albumin 4.3 3.8 (3.5-5.0) g/dL
[2024-08-30] MEDS: ENOXAPARIN 40 MG/0.4 ML SYRINGE SQ SCH (16:27)
[2024-08-30] MEDS: PIPERACILLIN-TAZOBACTAM 3.375 GM in SODIUM CHLORIDE 0.9% 100 ML IVPB SCH (16:27)
[2024-08-30] MEDS: HYDROmorphone 2 MG/ML 1 ML SYRINGE IVP PRN (16:36)
[2024-08-30] MEDS: ONDANSETRON 4 MG/2 ML VIAL IVP PRN (16:40)
[2024-08-31 04:53] LABS: Basophils # (A) 0.06 10*3/uL (0.00-0.10); Basophils % (A) 0.3 %; Eosinophils # (A) 0.01 10*3/uL (0.04-0.35); Eosinophils % (A) 0.1 %; HCT 43.9 % (39.6-50.0); HGB 14.5 g/dL (13.0-17.0); Lymphocytes # (A) 1.04 10*3/uL (0.90-5.00); Lymphocytes % (A) 5.6 %; MCH 29.4 pg (27.0-32.0); Monocytes % (A) 8.6 %; Neutrophils # (A) 15.86 10*3/uL (1.80-7.70); Neutrophils % (A) 85.1 %; Platelet Count 204 10*3/uL (140-440); RBC 4.93 10*6/uL (4.40-5.60); RDW 13.3 % (11.5-14.5); WBC 18.63 10*3/uL (4.50-10.00)
[2024-08-31 05:13] LABS: ALT 87 U/L (4-49); AST 50 U/L (17-59); African American GFR (CKD) >90 (>60 ml/min/1.73 sqM); Albumin 3.5 g/dL (3.5-5.0); Albumin/Globulin Ratio 1.3; Alkaline Phosphatase 70 U/L (38-126); Anion Gap 11 mmol/L; Blood Urea Nitrogen 14 mg/dL (9-20); Calcium 8.5 mg/dL (8.4-10.2); Carbon Dioxide 24 mmol/L (22-30); Chloride 101 mmol/L (98-107); Globulin 2.7 g/dL; Glucose 98 mg/dL (74-99); Non-African American GFR(CKD) 86 (>60 ml/min/1.73 sqM); Sodium 136 mmol/L (137-145); Total Bilirubin 1.3 mg/dL (0.2-1.3); Total Protein 6.2 g/dL (6.3-8.2)
[2024-08-31 06:22] LABS: Lipase 1656 U/L (23-300)
[2024-08-31] MEDS: IV FLUID CONTINUATION 1,000 ML IV ONE (08:52)
[2024-08-31] MEDS: DEXAMETHASONE SOD PHOSPHATE 4 MG/ML 1 ML VIAL IVP STA (09:08)
[2024-08-31] MEDS: FAMOTIDINE 20 MG/2 ML VIAL IV STA (09:08)
[2024-08-31] MEDS: fentaNYL (PF) 50 MCG/ML 2 ML AMP IVP PRN (09:19)
[2024-08-31 09:39] LABS: Glucose,Whole Blood 108 mg/dL (70-110)
[2024-08-31] MEDS ORDERED: SUCCINYLCHOLINE CHLORIDE 200 MG/10 ML VIAL IV ONE (10:02)
[2024-08-31] MEDS ORDERED: PROPOFOL 10 MG/ML 20 ML VIAL IV ONE (10:02)
[2024-08-31] MEDS ORDERED: KETOROLAC 15 MG/ML 1 ML VIAL ONE (10:02)
[2024-08-31] MEDS ORDERED: HYDROmorphone (PF) 1 MG/ML ONE (10:02)
[2024-08-31] MEDS ORDERED: LIDOCAINE 1% INJ 10MG/ML (20 ML MDV) ONE (10:02)
[2024-08-31] MEDS ORDERED: fentaNYL (PF) 50 MCG/ML 2 ML AMP ONE (10:02)
[2024-08-31] MEDS ORDERED: MIDAZOLAM 2 MG/2 ML VIAL ONE (10:02)
[2024-08-31] MEDS ORDERED: NEOSTIGMINE 1 MG/ML 10 ML VIAL ONE (10:02)
[2024-08-31] MEDS ORDERED: GLYCOPYRROLATE 0.2 MG/ML 2 ML VIAL ONE (10:02)
[2024-08-31] MEDS ORDERED: ROCURONIUM 10 MG/ML (5 ML VIAL) IV ONE (10:02)
[2024-08-31] MEDS: LIDOCAINE 1%-EPI 1:100,000 20 ML VIAL SQ ONE (10:29)
--- NOTE | 2024-08-31 11:04 | P.OP ---
Date of Procedure: 08/31/24 Preoperative Diagnosis: Gallstone pancreatitis Cholecystitis Postoperative Diagnosis: Gallstone pancreatitis Cholecystitis Procedure(s) Performed: Laparoscopic cholecystectomy Anesthesia: ALESSANDRO Surgeon: Rayo Leos Estimated Blood Loss (ml): 5 Pathology: other (Gallbladder) Condition: stable Disposition: PACU Description of Procedure: The patient was placed on the operating table. The patient received a general endotracheal tube anesthesia. The patients abdomen was prepped and draped in the usual sterile fashion. Through an infraumbilical stab incision, the fascia of the anterior abdominal wall was grasped with a pair of Kochers and then the Veress needle was placed in the peritoneal cavity. Position of the Veress needle was confirmed with positive drop test. The abdomen was then insufflated. After adequate insufflation, the 10 mm trocar was placed in the peritoneal cavity. Following this the laparoscope was placed in the peritoneal cavity. The patient was placed in the head-up, right side up position and then a 5 mm trocar was placed in the right lateral and right subcostal position under direct visualization. A 8 mm trocar was placed in the epigastric position. The gallbladder was grasped in the fundus and infundibulum. Traction on the gallbladder was placed in the lateral and the cephalad positions. The triangle of Calot was visualized.. The cystic duct was bluntly dissected until the union of the cystic duct and common bile duct was seen. A critical view of safety was achieved. The cystic duct was then divided and sealed with the Harmonic scissors. A PDS Endoloop was then placed throughout the cystic duct stump. The cystic artery divided and sealed with the Harmonic scissors. The gallbladder was then removed from the liver bed using Harmonic scissors. The gallbladder was then extracted through the epigastric port site. Operative field was checked for any bleeding spots and Harmonic scissors was used to coagulate the liver bed. The abdomen was irrigated. The trocars were removed. The skin was closed using interrupted 3-0 Vicryl suture. Dermabond dressing were applied. The patient tolerated the procedure well.
--- NOTE | 2024-08-31 12:13 | P.PN ---
Subjective Progress Note Date: 08/31/24 Hospital Course: Patient is a 54-year-old male with no significant medical history presenting with acute abdominal pain. Patient states the pain started last night at 9 PM and describes it as a sharp, 10/10, abdominal pain located in the upper abdomen that radiates to his back. Patient reports of nausea and 1 episode of nonbloody emesis. Interview patient still with pain in same reason despite being on pain medication. He states he does not have much of an appetite at the moment. Denies any medication changes. Denies having any episodes of pain similar to this. Denies any heavy alcohol use or drug use. Patient states last drink was a week ago. Patient denies any fever, chills, chest pain, shortness of breath, urinary symptoms. EKG independent interpreted displaying sinus tachycardia, rate 106 bpm, QTc 385 Abdominal/pelvis CT intracyst feel edematous pancreatitis, no associated gas or fluid collection, circumferential wall thickening of the duodenum, slightly dilated distal esophagus with reflux fluid Gallbladder ultrasound displaying sludge with possible small stone, fatty liver KUB x-ray displaying no acute findings Labs on admission: Lipase >20,000, WBC 19.52, neutrophils 515.05, immature granulocytes 0.08, CO2 31, BUN 22, creatinine 1.53, lactic acid 2.6 calcium 10.8, AST 181, ALT 125 UA unremarkable with trace urine protein T97.5 F, SD 126, 24, BP 139/84, O2 saturation 94% on room ai Subjective: Patient was not at bedside this morning due to scheduled laparoscopic cholecystectomy surgery. Will plan to follow-up postoperation. Pertinent positives and negatives as discussed above, a complete review of systems was performed and all other systems are negative. Vitals: Signs Reviewed Disregard physical exam performed due to patient not being available at bedside, will evaluate post surgery Physical Exam: General: nontoxic, no distress, appears at stated age Derm: warm, dry, intact Head: atraumatic, normocephalic, symmetric Eyes: EOMI, anicteric sclera Mouth: no lip lesion, mucus membranes moist Cardiovascular: S1 S2 reg, no murmur, rubs, or gallops Lungs: CTA bilateral, no rhonchi, no rales, no accessory muscle use Abdominal: soft, non-tender to palpataion, no appreciable organomegaly Extremities: no gross muscle atrophy, no edema, no contractures Neuro: Alert, Oriented, CNII-XII grossly intact, gait normal Psych: well appearing, appropriate affect Data Received Today: Pertinent Labs: WBC 18.63, sodium 136, BUN 14, creatinine 1.00 Imaging: N/A Assessment and Plan: Patient is a 54-year-old male with no significant medical history presenting with acute abdominal pain secondary to acute pancreatitis. #. Acute pancreatitis, likely related to gallstones #. ARRON, improving #. Lactic acidosis, resolved BISAP score of 1 Lipase greater than 20,000 on admission Continue with normal saline at 150 cc an hour Keep patient NPO, will try to advance diet when he can tolerate Pain management with morphine sulfate 4 mg IV every 4 hours as needed ARRON improving with fluid management, creatinine down from 1.53 to 1.27 Triglycerides pending GI note reviewed, continue symptomatic supportive care Surgery following, laparoscopic cholecystectomy today F: NS at 100 cc an hour E: Plan as needed N: NPO A: Independently ambulatory at baseline DVT prophylaxis: Lovenox 40 SQ daily Code status: Full code Anticipated discharge place: Pending clinical course Anticipated discharge time: Pending clinical course Brendan Juan MD PGY-1 IM Dictation was produced using [employer] dictation software. please excuse any grammatical, word or spelling errors. I saw and evaluated the patient during the valerio and critical portions of this encounter, and discussed the case in detail with the resident author of this note, I agree with the Assessment and Plan, and my changes, if any, are highlighted in blue. Objective - Vital Signs Vital signs: Vital Signs Temp 99.2 F 08/31/24 01:35 Pulse 112 H 08/31/24 01:35 Resp 16 08/31/24 01:35 BP 120/60 08/31/24 01:35 Pulse Ox 95 08/31/24 01:35 FiO2 Intake & Output 08/30/24 08/31/24 08/31/24 18:59 06:59 18:59 Weight 113.398 kg Other: Voiding Method Toilet Toilet # Voids 2 3 - Labs CBC & Chem 7: 08/31/24 03:56 08/31/24 03:56 Labs: Abnormal Lab Results - Last 24 Hours (Table) 08/30/24 08/30/24 08/31/24 Range/Units 07:40 07:40 03:56 WBC 14.96 H 18.63 H (4.50-10.00) 10*3/uL Immature Gran # 0.06 H 0.06 H (0.00-0.04) 10*3/uL Neutrophils # 12.39 H 15.86 H (1.80-7.70) 10*3/uL Monocytes # 1.13 H 1.60 H (0.20-1.00) 10*3/uL Eosinophils # 0.01 L 0.01 L (0.04-0.35) 10*3/uL Sodium (137-145) mmol/L Creatinine 1.27 H (0.66-1.25) mg/dL Glucose 130 H (74-99) mg/dL AST 111 H (17-59) U/L ALT 123 H (4-49) U/L Total Protein (6.3-8.2) g/dL Lipase 8086 H (23-300) U/L 08/31/24 Range/Units 03:56 WBC (4.50-10.00) 10*3/uL Immature Gran # (0.00-0.04) 10*3/uL Neutrophils # (1.80-7.70) 10*3/uL Monocytes # (0.20-1.00) 10*3/uL Eosinophils # (0.04-0.35) 10*3/uL Sodium 136 L (137-145) mmol/L Creatinine (0.66-1.25) mg/dL Glucose (74-99) mg/dL AST (17-59) U/L ALT 87 H (4-49) U/L Total Protein 6.2 L (6.3-8.2) g/dL Lipase 1656 H (23-300) U/L
[2024-08-31] MEDS: PIPERACILLIN-TAZOBACTAM 3.375 GM in SODIUM CHLORIDE 0.9% 100 ML IVPB SCH (12:19)
--- NOTE | 2024-08-31 14:36 | P.PN ---
Subjective Progress Note Date: 08/31/24 Principal diagnosis: Pancreatitis This a pleasant 54-year-old male who presented to the emergency department last night with complaints of severe sharp abdominal pain in the upper abdomen radiating around to the left side in his back. States that yesterday afternoon he started having some abdominal discomfort but after 9:00 he states that he started having severe pain with nausea and vomiting. He was brought into the emergency department was noted to have elevated AST and ALT as well as a lipase greater than 20,000. He had a ultrasound of the gallbladder that reported s ludge and a possible small gallstone. Fatty liver. Common bile duct measured 0.7 cm. He had a CT of the abdomen pelvis that showed edematous pancreatitis and likely reactive duodenitis. Gastroenterology was consulted for pancreatitis. Patient denies any previous history of pancreatitis. States he is in social drinker may drink a couple days a week. Nothing real heavy. Denies any history of gallbladder issues, no new medications. Patient states abdominal pain improved with pain medication. No further nausea or vomiting. He states he has had "GI issues "for as long as he can remember however over the last 1 year duration feels that he has been getting more gassy and bloating. He he does not follow with a PCP. States he did have a colonoscopy about a year ago in the [place] area and states it was normal. He has no history of upper endoscopy. Admitting labs WBC 19.5 hemoglobin 15.9 hematocrit 46 platelet count 251,000 INR 1.0 sodium 140 potassium 4.0 BUN 22 creatinine 1.5 total bilirubin 1.0 AST 181 ALT 125 alkaline phosphatase 97 lipase greater than 20,000 08/31/2024 Patient seen and examined today as a follow-up. This morning he underwent laparoscopic cholecystectomy. He states abdominal pain is improved. He is currently resting. He ate some fruit this afternoon. No nausea or vomiting. Today's labs WBC 18.6 hemoglobin 14.5 platelets 204,000 total bilirubin 1.3 AST 50 ALT 87 alkaline phosphatase 70 lipase at 1656 Objective - Vital Signs Vital signs: Vital Signs Temp 98.0 F 08/31/24 12:09 Pulse 106 H 08/31/24 12:37 Resp 18 08/31/24 12:37 BP 133/81 08/31/24 12:37 Pulse Ox 91 L 08/31/24 12:37 FiO2 Intake & Output 08/30/24 08/31/24 08/31/24 18:59 06:59 18:59 Intake Total 700 Output Total 10 Balance 690 Weight 113.398 kg 113.398 kg Intake: IV 700 Output: Estimated Blood Loss 10 Other: Voiding Method Toilet Toilet # Voids 2 3 - Exam General appearance: The patient is alert, oriented, appears in no acute distress. HET: Head is normocephalic and atraumatic. Conjunctiva pink. Sclera anicteric. Neck: Supple without lymphadenopathy. Abdomen: Soft, incisions well-approximated with Steri-Strips, nondistended. Extremities: Normal skin color and turgor. No pedal edema Skin: No rashes, no jaundice Neurological: No focal deficits. Alert and oriented. - Labs CBC & Chem 7: 08/31/24 03:56 08/31/24 03:56 Labs: Abnormal Lab Results - Last 24 Hours (Table) 08/31/24 08/31/24 Range/Units 03:56 03:56 WBC 18.63 H (4.50-10.00) 10*3/uL Immature Gran # 0.06 H (0.00-0.04) 10*3/uL Neutrophils # 15.86 H (1.80-7.70) 10*3/uL Monocytes # 1.60 H (0.20-1.00) 10*3/uL Eosinophils # 0.01 L (0.04-0.35) 10*3/uL Sodium 136 L (137-145) mmol/L ALT 87 H (4-49) U/L Total Protein 6.2 L (6.3-8.2) g/dL Lipase 1656 H (23-300) U/L Assessment and Plan (1) Acute pancreatitis Narrative/Plan: 54-year-old male presenting with abdominal pain in the epigastric region radiating to the left upper abdomen and back with his significantly elevated lipase on admission greater than 20,000 and elevated AST and ALT. Abdominal ultrasound reports gallbladder sludge and possible stone, however CT abdomen pelvis reports no gallbladder abnormality, but acute pancreatitis. Likely gallstone pancreatitis without evidence at this time choledochal lithiasis. Recommend medical management. Consult to general surgery. Triglycerides ordered. Current Visit: Yes Status: Acute Code(s): K85.90 - ACUTE PANCREATITIS WITHOUT NECROSIS OR INFECTION, UNSP SNOMED Code(s): 436510303 (2) Cholecystitis Narrative/Plan: Patient s/p laparoscopic cholecystectomy. Leukocytosis, on IV antibiotics. Liver enzymes and lipase improving. Current Visit: Yes Status: Acute Code(s): K81.9 - CHOLECYSTITIS, UNSPECIFIED SNOMED Code(s): 80451947 Plan: 1. Continue symptomatic and supportive care 2. Continue IV antibiotics 3. Diet per recommendations from general surgery 4. Repeat CBC, CMP tomorrow 5. Continue pain management per general surgery 6. Further recommendations forthcoming based on clinical course Thank you for this consultation, we will continue to follow. Dr. Scooby Oliva I agree with the dictator's note, documented as a scribe by Ruth Bermudez.
[2024-08-31] MEDS: CALCIUM CARBONATE 500 MG CHEWABLE PO PRN (16:37)
[2024-08-31] MEDS: ACETAMINOPHEN TAB 325 MG TAB PO PRN (19:45)
[2024-09-01 08:15] LABS: ALT 59 U/L (10-49); AST 35 U/L (14-35); Albumin 3.4 g/dL (3.8-4.9); Albumin/Globulin Ratio 1.48 Ratio (1.60-3.17); Alkaline Phosphatase 68 U/L (41-126); Blood Urea Nitrogen 12.3 mg/dL (9.0-27.0); Carbon Dioxide 23.6 mmol/L (21.6-31.8); Chloride 105 mmol/L (96-109); Globulin 2.3 g/dL (1.6-3.3); Glucose 116 mg/dL (70-110); Potassium 4.1 mmol/L (3.5-5.5); Sodium 137 mmol/L (135-145); Total Bilirubin 0.7 mg/dL (0.3-1.2); Total Protein 5.7 g/dL (6.2-8.2)
[2024-09-01 08:31] LABS: Basophils # (A) 0.04 X 10*3/uL (0.00-0.10); Basophils % (A) 0.3 %; Eosinophils # (A) 0.02 X 10*3/uL (0.04-0.35); Eosinophils % (A) 0.1 %; HCT 39.7 % (39.6-50.0); Lymphocytes # (A) 1.57 X 10*3/uL (0.90-5.00); Lymphocytes % (A) 10.2 %; MCH 29.1 pg (27.0-32.0); MCHC 32.7 g/dL (32.0-37.0); Mean Platelet Volume 10.6 FL (9.5-12.2); Monocytes # (A) 1.28 X 10*3/uL (0.20-1.00); Monocytes % (A) 8.3 %; NRBC Per 100 WBC 0 X 10*3/uL (0.00-0.01); Neutrophils # (A) 12.41 X 10*3/uL (1.80-7.70); Neutrophils % (A) 80.6 %; Platelet Count 180 X 10*3/uL (140-440); RBC 4.46 X 10*6/uL (4.40-5.60); RDW 13.4 % (11.5-14.5); WBC 15.39 X 10*3/uL (4.50-10.00)
--- NOTE | 2024-09-01 11:53 | P.PN ---
Subjective Progress Note Date: 09/01/24 Hospital Course: Patient is a 54-year-old male with no significant medical history presenting with acute abdominal pain. Patient states the pain started last night at 9 PM and describes it as a sharp, 10/10, abdominal pain located in the upper abdomen that radiates to his back. Patient reports of nausea and 1 episode of nonbloody emesis. Interview patient still with pain in same reason despite being on pain medication. He states he does not have much of an appetite at the moment. Denies any medication changes. Denies having any episodes of pain similar to this. Denies any heavy alcohol use or drug use. Patient states last drink was a week ago. Patient denies any fever, chills, chest pain, shortness of breath, urinary symptoms. EKG independent interpreted displaying sinus tachycardia, rate 106 bpm, QTc 385 Abdominal/pelvis CT intracyst feel edematous pancreatitis, no associated gas or fluid collection, circumferential wall thickening of the duodenum, slightly dilated distal esophagus with reflux fluid Gallbladder ultrasound displaying sludge with possible small stone, fatty liver KUB x-ray displaying no acute findings Labs on admission: Lipase >20,000, WBC 19.52, neutrophils 515.05, immature granulocytes 0.08, CO2 31, BUN 22, creatinine 1.53, lactic acid 2.6 calcium 10.8, AST 181, ALT 125 UA unremarkable with trace urine protein T97.5 F, CO 126, 24, BP 139/84, O2 saturation 94% on room ai Subjective: Patient seen evaluated bedside. No acute events overnight, no acute complaints. States he ate cereal this morning, still trying to tolerate regular diet. Has minor complaint of pain due to surgery. Pertinent positives and negatives as discussed above, a complete review of systems was performed and all other systems are negative. Vitals: Signs Reviewed Physical Exam: General: nontoxic, no distress, appears at stated age Derm: warm, dry, intact Head: atraumatic, normocephalic, symmetric Eyes: EOMI, anicteric sclera Mouth: no lip lesion, mucus membranes moist Cardiovascular: S1 S2 reg, no murmur, rubs, or gallops Lungs: CTA bilateral, no rhonchi, no rales, no accessory muscle use Abdominal: Distended from recent surgery, mildlytender to palpataion, no allison reciable organomegaly Extremities: no gross muscle atrophy, no edema, no contractures Neuro: Alert, Oriented, CNII-XII grossly intact, gait normal Psych: well appearing, appropriate affect Data Received Today: Pertinent Labs: WBC 15.39, sodium 137, BUN 12.3, creatinine 1.00 Imaging: N/A Assessment and Plan: Patient is a 54-year-old male with no significant medical history presenting with acute abdominal pain secondary to acute pancreatitis s/p upper scopic cholecystectomy POD 1. #. Acute pancreatitis, secondary to gallstones status postcholecystectomy #. ARRON, resolved #. Lactic acidosis, resolved BISAP score of 1 Lipase greater than 20,000 on admission Continue with normal saline at 100 cc an hour Patient advance to regular diet will continue to monitor to see how he tolerates Pain management with morphine sulfate 4 mg IV every 4 hours as needed ARRON resolved with fluid management GI note reviewed, continue symptomatic supportive care Surgery following, s/p cholecystectomy postop day 1 Antibiotics and pain management being handled by general surgery, suggest discontinuing Zosyn, no need for antibiotics on discharge F: NS at 100 cc an hour E: Replete as needed N: Regular diet A: Independently ambulatory at baseline DVT prophylaxis: Lovenox 40 SQ daily Code status: Full code Anticipated discharge place: Home Anticipated discharge time: Likely tomorrow Brendan Juan MD PGY-1 IM Dictation was produced using [employer] dictation software. please excuse any grammatical, word or spelling errors. I have seen and evaluated the patient today. Discussed with the resident and ag ree with the residents finding and plan as documented in the resident's note. Changes highlighted in blue font. Objective - Vital Signs Vital signs: Vital Signs Temp 98.3 F 09/01/24 00:58 Pulse 100 09/01/24 00:58 Resp 16 09/01/24 00:58 BP 114/77 09/01/24 00:58 Pulse Ox 96 09/01/24 00:58 FiO2 Intake & Output 08/31/24 09/01/24 09/01/24 18:59 06:59 18:59 Intake Total 700 1640 Output Total 10 Balance 690 1640 Weight 113.398 kg Intake: IV 700 Intake, IV Titration 1400 Amount Piperacillin-Tazobactam 3 200 .375 gm In Sodium Chloride 0.9% 100 ml @ 25 mls/hr IVPB Q8H [facility] Rx#: [id number] Sodium Chloride 0.9% 1, 1200 000 ml @ 100 mls/hr IV . Q10H [facility] Rx#:[id number] Oral 240 Output: Estimated Blood Loss 10 Other: Voiding Method Toilet # Voids 1 1 - Labs CBC & Chem 7: 09/01/24 03:59 09/01/24 03:59
--- NOTE | 2024-09-01 12:20 | P.PN ---
Subjective Progress Note Date: 09/01/24 SURGICAL PROGRESS NOTE CHIEF COMPLAINT: Gallstone pancreatitis HISTORY OF PRESENT ILLNESS: Patient is postop day 1 status post laparoscopic cholecystectomy. He does report abdominal pain and bloating. He did report mild cough. Appetite is decreased. But no nausea or vomiting. No flatus. He did have a temp of 101.1 last night. He has been mildly tachycardic. WBC is down from 18-15. Hgb 13.0 LFTs trending down. Total bili normal AST normalized ALT 59 alk phos 68 PHYSICAL EXAM: VITAL SIGNS: Reviewed. GENERAL: Well-developed in no acute distress. ABDOMEN: Distended. Epigastric incision with ecchymosis noted. Otherwise incisions are clean dry and intact. Tender at incision sites. NEUROLOGIC: Alert and oriented. Cranial nerves II through XII grossly intact. ASSESSMENT: 1. Gallstone pancreatitis 2. Cholecystitis PLAN: - Continue low-fat diet - Ultram added for oral pain medication - Incentive spirometer ordered for possible atelectasis contributing to the fever - Encourage patient to ambulate - Continue antibiotics - Repeat labs in a.m. - Anticipate discharge possibly tomorrow - DVT prophylaxis Lovenox and GI prophylaxis Protonix Physician Screening Tech note has been reviewed by physician. Signing provider agrees with the documented findings, assessment, and plan of care. Objective - Vital Signs Vital signs: Vital Signs Temp 98.6 F 09/01/24 07:32 Pulse 97 09/01/24 07:32 Resp 16 09/01/24 07:32 BP 108/69 09/01/24 07:32 Pulse Ox 90 L 09/01/24 07:32 FiO2 Intake & Output 08/31/24 09/01/24 09/01/24 18:59 06:59 18:59 Intake Total 700 1640 Output Total 10 Balance 690 1640 Weight 113.398 kg Intake: IV 700 Intake, IV Titration 1400 Amount Piperacillin-Tazobactam 3 200 .375 gm In Sodium Chloride 0.9% 100 ml @ 25 mls/hr IVPB Q8H [facility] Rx#: [id number] Sodium Chloride 0.9% 1, 1200 000 ml @ 100 mls/hr IV . Q10H [facility] Rx#:[id number] Oral 240 Output: Estimated Blood Loss 10 Other: Voiding Method Toilet # Voids 1 1 - Labs CBC & Chem 7: 09/01/24 03:59 09/01/24 03:59 Labs: Abnormal Lab Results - Last 24 Hours (Table) 09/01/24 09/01/24 Range/Units 03:59 03:59 WBC 15.39 H (4.50-10.00) X 10*3/uL Immature Gran # 0.07 H (0.00-0.04) X 10*3/uL Neutrophils # 12.41 H (1.80-7.70) X 10*3/uL Monocytes # 1.28 H (0.20-1.00) X 10*3/uL Eosinophils # 0.02 L (0.04-0.35) X 10*3/uL Glucose 116 H (70-110) mg/dL Calcium 8.0 L (8.7-10.3) mg/dL ALT 59 H (10-49) U/L Total Protein 5.7 L (6.2-8.2) g/dL Albumin 3.4 L (3.8-4.9) g/dL Albumin/Globulin Ratio 1.48 L (1.60-3.17) Ratio
--- NOTE | 2024-09-01 12:51 | P.PN ---
Subjective Progress Note Date: 09/01/24 Principal diagnosis: Pancreatitis This a pleasant 54-year-old male who presented to the emergency department last night with complaints of severe sharp abdominal pain in the upper abdomen radiating around to the left side in his back. States that yesterday afternoon he started having some abdominal discomfort but after 9:00 he states that he started having severe pain with nausea and vomiting. He was brought into the emergency department was noted to have elevated AST and ALT as well as a lipase greater than 20,000. He had a ultrasound of the gallbladder that reported s ludge and a possible small gallstone. Fatty liver. Common bile duct measured 0.7 cm. He had a [address] of the abdomen pelvis that showed edematous pancreatitis and likely reactive duodenitis. Gastroenterology was consulted for pancreatitis. Patient denies any previous history of pancreatitis. States he is in social drinker may drink a couple days a week. Nothing real heavy. Denies any history of gallbladder issues, no new medications. Patient states abdominal pain improved with pain medication. No further nausea or vomiting. He states he has had "GI issues "for as long as he can remember however over the last 1 year duration feels that he has been getting more gassy and bloating. He he does not follow with a PCP. States he did have a colonoscopy about a year ago in the [place] area and states it was normal. He has no history of upper endoscopy. Admitting labs WBC 19.5 hemoglobin 15.9 hematocrit 46 platelet count 251,000 INR 1.0 sodium 140 potassium 4.0 BUN 22 creatinine 1.5 total bilirubin 1.0 AST 181 ALT 125 alkaline phosphatase 97 lipase greater than 20,000 08/31/2024 Patient seen and examined today as a follow-up. This morning he underwent laparoscopic cholecystectomy. He states abdominal pain is improved. He is currently resting. He ate some fruit this afternoon. No nausea or vomiting. Today's labs WBC 18.6 hemoglobin 14.5 platelets 204,000 total bilirubin 1.3 AST 50 ALT 87 alkaline phosphatase 70 lipase at 1656 09/01/2024 Patient seen and examined today as a follow-up. He is postop day #1 for laparoscopic cholecystectomy. Patient states he still has quite a bit of pain mostly surgical. Still feeling bloated. Not passing gas or having a bowel movement. No nausea or vomiting. Just decreased appetite. Patient was febrile through the night with a max temp of 101.1. WBC 15.3 hemoglobin 13 platelet count 180,000 total bilirubin 0.7 AST 35 ALT 59 alkaline phosphatase 68 Objective - Vital Signs Vital signs: Vital Signs Temp 98.6 F 09/01/24 07:32 Pulse 97 09/01/24 07:32 Resp 16 09/01/24 07:32 BP 108/69 09/01/24 07:32 Pulse Ox 90 L 09/01/24 07:32 FiO2 Intake & Output 08/31/24 09/01/24 09/01/24 18:59 06:59 18:59 Intake Total 700 1640 Output Total 10 Balance 690 1640 Weight 113.398 kg Intake: IV 700 Intake, IV Titration 1400 Amount Piperacillin-Tazobactam 3 200 .375 gm In Sodium Chloride 0.9% 100 ml @ 25 mls/hr IVPB Q8H [facility] Rx#: [id number] Sodium Chloride 0.9% 1, 1200 000 ml @ 100 mls/hr IV . Q10H [facility] Rx#:[id number] Oral 240 Output: Estimated Blood Loss 10 Other: Voiding Method Toilet # Voids 1 1 - Exam General appearance: The patient is alert, oriented, appears in no acute distress. HET: Head is normocephalic and atraumatic. Conjunctiva pink. Sclera anicteric. Neck: Supple without lymphadenopathy. Abdomen: Soft, incisions well-approximated, distended. Extremities: Normal skin color and turgor. No pedal edema Skin: No rashes, no jaundice Neurological: No focal deficits. Alert and oriented. - Labs CBC & Chem 7: 09/01/24 03:59 09/01/24 03:59 Labs: Abnormal Lab Results - Last 24 Hours (Table) 09/01/24 09/01/24 Range/Units 03:59 03:59 WBC 15.39 H (4.50-10.00) X 10*3/uL Immature Gran # 0.07 H (0.00-0.04) X 10*3/uL Neutrophils # 12.41 H (1.80-7.70) X 10*3/uL Monocytes # 1.28 H (0.20-1.00) X 10*3/uL Eosinophils # 0.02 L (0.04-0.35) X 10*3/uL Glucose 116 H (70-110) mg/dL Calcium 8.0 L (8.7-10.3) mg/dL ALT 59 H (10-49) U/L Total Protein 5.7 L (6.2-8.2) g/dL Albumin 3.4 L (3.8-4.9) g/dL Albumin/Globulin Ratio 1.48 L (1.60-3.17) Ratio Assessment and Plan (1) Acute pancreatitis Narrative/Plan: 54-year-old male presenting with abdominal pain in the epigastric region radiating to the left upper abdomen and back with his significantly elevated lipase on admission greater than 20,000 and elevated AST and ALT. Abdominal ultrasound reports gallbladder sludge and possible stone, however CT abdomen pelvis reports no gallbladder abnormality, but acute pancreatitis. Likely gallstone pancreatitis without evidence at this time choledochal lithiasis. Rec [facility] medical management. Consult to general surgery. Triglycerides ordered. Current Visit: Yes Status: Acute Code(s): K85.90 - ACUTE PANCREATITIS WITHOUT NECROSIS OR INFECTION, UNSP SNOMED Code(s): 871707790 (2) Cholecystitis Narrative/Plan: Patient s/p laparoscopic cholecystectomy. Leukocytosis, on IV antibiotics. Liver enzymes and lipase improving. Current Visit: Yes Status: Acute Code(s): K81.9 - CHOLECYSTITIS, UNSPECIFIED SNOMED Code(s): 26098852 Plan: 1. Continue symptomatic and supportive care 2. Continue IV antibiotics 3. Diet per recommendations from general surgery 4. Continue pain management per general surgery 5. There is no indication for any gastroenterology intervention Thank you for this consultation, we will sign off at this time. Patient can follow-up with gastroenterology for history of GERD, bloating as needed. Dr. Scooby Oliva I agree with the dictator's note, documented as a scribe by Ruth Bermudez.
[2024-09-01] MEDS: traMADol 50 MG TAB PO PRN (19:02)
[2024-09-02] MEDS: HYDROcodone/APAP 5-325MG 1 EACH TAB PO PRN (01:11)
[2024-09-02 04:01] LABS: ALT 99 U/L (4-49); AST 100 U/L (17-59); African American GFR (CKD) >90 (>60 ml/min/1.73 sqM); Albumin 2.9 g/dL (3.5-5.0); Albumin/Globulin Ratio 1.2; Alkaline Phosphatase 196 U/L (38-126); Anion Gap 10 mmol/L; Blood Urea Nitrogen 7 mg/dL (9-20); Calcium 8.1 mg/dL (8.4-10.2); Carbon Dioxide 21 mmol/L (22-30); Chloride 102 mmol/L (98-107); Globulin 2.5 g/dL; Glucose 121 mg/dL (74-99); Non-African American GFR(CKD) >90 (>60 ml/min/1.73 sqM); Potassium 3.7 mmol/L (3.5-5.1); Sodium 133 mmol/L (137-145); Total Bilirubin 3.4 mg/dL (0.2-1.3); Total Protein 5.4 g/dL (6.3-8.2)
[2024-09-02 08:26] LABS: MCH 28.7 pg (27.0-32.0); MCHC 32.4 g/dL (32.0-37.0); MCV 88.5 FL (80.0-97.0); Mean Platelet Volume 10.8 FL (9.5-12.2); NRBC Per 100 WBC 0 X 10*3/uL (0.00-0.01); Platelet Count 201 X 10*3/uL (140-440); RBC 4.18 X 10*6/uL (4.40-5.60); RDW 13.2 % (11.5-14.5)
[2024-09-02 08:42] LABS: Prothrombin Time 11.1 sec (10.0-12.5)
[2024-09-02 09:14] LABS: Basophils # (A) 0.05 X 10*3/uL (0.00-0.10); Basophils % (A) 0.4 %; Eosinophils # (A) 0.17 X 10*3/uL (0.04-0.35); Eosinophils % (A) 1.2 %; Lymphocytes % (A) 10.2 %; Monocytes # (A) 1.56 X 10*3/uL (0.20-1.00); Monocytes % (A) 11.4 %; Neutrophils # (A) 10.44 X 10*3/uL (1.80-7.70); Neutrophils % (A) 76.2 %
--- NOTE | 2024-09-02 12:49 | P.PN ---
Subjective Progress Note Date: 09/02/24 SURGICAL PROGRESS NOTE CHIEF COMPLAINT: Gallstone pancreatitis HISTORY OF PRESENT ILLNESS: Patient is postop day #2 status post laparoscopic cholecystectomy. Patient complains of abdominal pain mostly epigastric area and across the right and left upper quadrant into the back. Patient reports his pain is about the same as yesterday. He had a mildly tachycardic. A low-grade temp of 99.8. His total bilirubin did go up to 3.4 and LFTs did trend upwards. Patient evaluated by GI service and scheduled for ERCP. PHYSICAL EXAM: VITAL SIGNS: Reviewed. GENERAL: Well-developed in no acute distress. ABDOMEN: Distended. Epigastric right upper quadrant left upper quadrant tenderness. Incisions clean dry and intact NEUROLOGIC: Alert and oriented. Cranial nerves II through XII grossly intact. ASSESSMENT: 1. Gallstone pancreatitis 2. Cholecystitis 3. Elevated total bilirubin and LFTs. Possible choledocholithiasis. PLAN: -Patient scheduled for ERCP with GI service today - Continue antibiotics - Encouraged incentive spirometer use - Encourage patient increase activity level - DVT prophylaxis Lovenox and GI prophylaxis Protonix Physician Administrative Asst note has been reviewed by physician. Signing provider agrees with the documented findings, assessment, and plan of care. Objective - Vital Signs Vital signs: Vital Signs Temp 98.7 F 09/02/24 08:00 Pulse 100 09/02/24 08:00 Resp 18 09/02/24 08:00 BP 142/88 09/02/24 08:00 Pulse Ox 97 09/02/24 08:00 FiO2 Intake & Output 09/01/24 09/02/24 09/02/24 18:59 06:59 18:59 Intake Total 100 200 Output Total 750 Balance 100 -550 Intake: Intake, IV Titration 100 Amount Piperacillin-Tazobactam 3 100 .375 gm In Sodium Chloride 0.9% 100 ml @ 25 mls/hr IVPB Q8H [facility] Rx#: [id number] Oral 200 Output: Urine 750 Other: Voiding Method Toilet Toilet Toilet - Labs CBC & Chem 7: 09/02/24 03:09 09/02/24 03:09 Labs: Abnormal Lab Results - Last 24 Hours (Table) 09/02/24 09/02/24 Range/Units 03:09 03:09 WBC 13.70 H (4.50-10.00) X 10*3/uL RBC 4.18 L (4.40-5.60) X 10*6/uL Hgb 12.0 L (13.0-17.0) g/dL Hct 37.0 L (39.6-50.0) % Immature Gran # 0.08 H (0.00-0.04) X 10*3/uL Neutrophils # 10.44 H (1.80-7.70) X 10*3/uL Monocytes # 1.56 H (0.20-1.00) X 10*3/uL Sodium 133 L (137-145) mmol/L Carbon Dioxide 21 L (22-30) mmol/L BUN 7 L (9-20) mg/dL Glucose 121 H (74-99) mg/dL Calcium 8.1 L (8.4-10.2) mg/dL Total Bilirubin 3.4 H (0.2-1.3) mg/dL AST 100 H (17-59) U/L ALT 99 H (4-49) U/L Alkaline Phosphatase 196 H (38-126) U/L Total Protein 5.4 L (6.3-8.2) g/dL Albumin 2.9 L (3.5-5.0) g/dL
--- NOTE | 2024-09-02 14:07 | P.PN ---
Subjective Progress Note Date: 09/02/24 Principal diagnosis: Pancreatitis This a pleasant 54-year-old male who presented to the emergency department last night with complaints of severe sharp abdominal pain in the upper abdomen radiating around to the left side in his back. States that yesterday afternoon he started having some abdominal discomfort but after 9:00 he states that he started having severe pain with nausea and vomiting. He was brought into the emergency department was noted to have elevated AST and ALT as well as a lipase greater than 20,000. He had a ultrasound of the gallbladder that reported s ludge and a possible small gallstone. Fatty liver. Common bile duct measured 0.7 cm. He had a [address] of the abdomen pelvis that showed edematous pancreatitis and likely reactive duodenitis. Gastroenterology was consulted for pancreatitis. Patient denies any previous history of pancreatitis. States he is in social drinker may drink a couple days a week. Nothing real heavy. Denies any history of gallbladder issues, no new medications. Patient states abdominal pain improved with pain medication. No further nausea or vomiting. He states he has had "GI issues "for as long as he can remember however over the last 1 year duration feels that he has been getting more gassy and bloating. He he does not follow with a PCP. States he did have a colonoscopy about a year ago in the [place] area and states it was normal. He has no history of upper endoscopy. Admitting labs WBC 19.5 hemoglobin 15.9 hematocrit 46 platelet count 251,000 INR 1.0 sodium 140 potassium 4.0 BUN 22 creatinine 1.5 total bilirubin 1.0 AST 181 ALT 125 alkaline phosphatase 97 lipase greater than 20,000 08/31/2024 Patient seen and examined today as a follow-up. This morning he underwent laparoscopic cholecystectomy. He states abdominal pain is improved. He is currently resting. He ate some fruit this afternoon. No nausea or vomiting. Today's labs WBC 18.6 hemoglobin 14.5 platelets 204,000 total bilirubin 1.3 AST 50 ALT 87 alkaline phosphatase 70 lipase at 1656 09/01/2024 Patient seen and examined today as a follow-up. He is postop day #1 for laparoscopic cholecystectomy. Patient states he still has quite a bit of pain mostly surgical. Still feeling bloated. Not passing gas or having a bowel movement. No nausea or vomiting. Just decreased appetite. Patient was febrile through the night with a max temp of 101.1. WBC 15.3 hemoglobin 13 platelet count 180,000 total bilirubin 0.7 AST 35 ALT 59 alkaline phosphatase 68 09/02/2024 Patient seen and examined today as a follow-up. He continues to have abdominal pain states surgical but also radiating into his back. Continues to have decreased appetite. No bowel movement. Leukocytosis improving. LFTs trending up. Total bilirubin 3.4 AST 100 ALT 99 alkaline phosphatase 196 patient is afebrile. Remains on IV antibiotics. Objective - Vital Signs Vital signs: Vital Signs Temp 98.7 F 09/02/24 08:00 Pulse 100 09/02/24 08:00 Resp 18 09/02/24 08:00 BP 142/88 09/02/24 08:00 Pulse Ox 97 09/02/24 08:00 FiO2 Intake & Output 09/01/24 09/02/24 09/02/24 18:59 06:59 18:59 Intake Total 100 200 Output Total 750 Balance 100 -550 Intake: Intake, IV Titration 100 Amount Piperacillin-Tazobactam 3 100 .375 gm In Sodium Chloride 0.9% 100 ml @ 25 mls/hr IVPB Q8H [facility] Rx#: [id number] Oral 200 Output: Urine 750 Other: Voiding Method Toilet Toilet - Exam General appearance: The patient is alert, oriented, appears in no acute distress. HET: Head is normocephalic and atraumatic. Conjunctiva pink. Sclera anicteric. Neck: Supple without lymphadenopathy. Abdomen: Soft, incisions well-approximated, distended. Extremities: Normal skin color and turgor. No pedal edema Skin: No rashes, no jaundice Neurological: No focal deficits. Alert and oriented. - Labs CBC & Chem 7: 09/02/24 03:09 09/02/24 03:09 Labs: Abnormal Lab Results - Last 24 Hours (Table) 09/02/24 09/02/24 Range/Units 03:09 03:09 WBC 13.70 H (4.50-10.00) X 10*3/uL RBC 4.18 L (4.40-5.60) X 10*6/uL Hgb 12.0 L (13.0-17.0) g/dL Hct 37.0 L (39.6-50.0) % Sodium 133 L (137-145) mmol/L Carbon Dioxide 21 L (22-30) mmol/L BUN 7 L (9-20) mg/dL Glucose 121 H (74-99) mg/dL Calcium 8.1 L (8.4-10.2) mg/dL Total Bilirubin 3.4 H (0.2-1.3) mg/dL AST 100 H (17-59) U/L ALT 99 H (4-49) U/L Alkaline Phosphatase 196 H (38-126) U/L Total Protein 5.4 L (6.3-8.2) g/dL Albumin 2.9 L (3.5-5.0) g/dL Assessment and Plan (1) Acute pancreatitis Narrative/Plan: 54-year-old male presenting with abdominal pain in the epigastric region radiating to the left upper abdomen and back with his significantly elevated lipase on admission greater than 20,000 and elevated AST and ALT. Abdominal ultrasound reports gallbladder sludge and possible stone, however CT abdomen pelvis reports no gallbladder abnormality, but acute pancreatitis. Likely gallstone pancreatitis without evidence at this time choledochal lithiasis. Recommend medical management. Consult to general surgery. Triglycerides ordered. Current Visit: Yes Status: Acute Code(s): K85.90 - ACUTE PANCREATITIS WITHOUT NECROSIS OR INFECTION, UNSP SNOMED Code(s): 596737084 (2) Transaminitis Narrative/Plan: Liver enzymes trending up, continued abdominal pain. Patient had cholelithiasis noted on imaging as well as cholecystectomy. Need to consider possible choledochal lithiasis. Recommend proceeding with ERCP. Current Visit: Yes Status: Acute Code(s): R74.01 - ELEVATION OF LEVELS OF LIVER TRANSAMINASE LEVELS SNOMED Code(s): 055652103 (3) Cholecystitis Narrative/Plan: Patient s/p laparoscopic cholecystectomy. Leukocytosis, on IV antibiotics. Liver enzymes and lipase improving. Current Visit: Yes Status: Acute Code(s): K81.9 - CHOLECYSTITIS, UNSPECIFIED SNOMED Code(s): 69310679 Plan: 1. Continue symptomatic and supportive care 2. Pain medication as needed 3. Protonix 40 mg daily for GI prophylaxis 4. Hold Lovenox 5. Keep n.p.o. 6. Continue IV antibiotics as ordered 7. Indomethacin as ordered 8. Will proceed with ERCP. Procedure discussed with patient and including risks and benefits. Patient agreeable to proceed. 9. Continue with recommendations from general surgery Thank you for this consultation, we will continue to follow. Dr. Scooby Oliva I agree with the dictator's note, documented as a scribe by Ruth Bermudez.
--- NOTE | 2024-09-02 15:07 | P.PN ---
Subjective Progress Note Date: 09/02/24 Hospital Course: Patient is a 54-year-old male with no significant medical history presenting with acute abdominal pain. Patient states the pain started last night at 9 PM and describes it as a sharp, 10/10, abdominal pain located in the upper abdomen that radiates to his back. Patient reports of nausea and 1 episode of nonbloody emesis. Interview patient still with pain in same reason despite being on pain medication. He states he does not have much of an appetite at the moment. Denies any medication changes. Denies having any episodes of pain similar to this. Denies any heavy alcohol use or drug use. Patient states last drink was a week ago. Patient denies any fever, chills, chest pain, shortness of breath, urinary symptoms. EKG independent interpreted displaying sinus tachycardia, rate 106 bpm, QTc 385 Abdominal/pelvis CT intracyst feel edematous pancreatitis, no associated gas or fluid collection, circumferential wall thickening of the duodenum, slightly dilated distal esophagus with reflux fluid Gallbladder ultrasound displaying sludge with possible small stone, fatty liver KUB x-ray displaying no acute findings Labs on admission: Lipase >20,000, WBC 19.52, neutrophils 515.05, immature granulocytes 0.08, CO2 31, BUN 22, creatinine 1.53, lactic acid 2.6 calcium 10.8, AST 181, ALT 125 UA unremarkable with trace urine protein T97.5 F, VA 126, 24, BP 139/84, O2 saturation 94% on room ai Subjective: Patient seen evaluated bedside. No acute events overnight. Patient still having moderate pain having difficulty with eating. Was just seen by GI and was informed about ERCP. Patient verbalizes understanding. Pertinent positives and negatives as discussed above, a complete review of systems was performed and all other systems are negative. Vitals: Signs Reviewed Physical Exam: General: nontoxic, no distress, appears at stated age Derm: warm, dry, intact Head: atraumatic, normocephalic, symmetric Eyes: EOMI, anicteric sclera Mouth: no lip lesion, mucus membranes moist Cardiovascular: S1 S2 reg, no murmur, rubs, or gallops Lungs: CTA bilateral, no rhonchi, no rales, no accessory muscle use Abdominal: Mildly distended from recent surgery, mildlytender to palpataion, no appreciable organomegaly Extremities: no gross muscle atrophy, no edema, no contractures Neuro: Alert, Oriented, CNII-XII grossly intact, gait normal Psych: well appearing, appropriate affect Data Received Today: Pertinent Labs: WBC 13.7 Hgb 12, MCV 88.5, total bilirubin 3.4, AST 100, ALT 99, alk phos 196, bicarb 21 Imaging: N/A Assessment and Plan: Patient is a 54-year-old male with no significant medical history presenting with acute abdominal pain secondary to acute pancreatitis s/p laparoscopic cholecystectomy POD 2. #. Acute pancreatitis, secondary to gallstones status postcholecystectomy #. Possible choledocholithiasis #. Non-anion gap metabolic acidosis BISAP score of 1 Lipase greater than 20,000 on admission Patient advance to regular diet will continue to monitor to see how he tolerates Pain management with morphine sulfate 4 mg IV every 4 hours as needed Non-anion gap metabolic acidosis likely due to normal saline fluid management, changed fluids to LR at 100 cc an hour Discussed with GI, plan for ERCP Indomethacin suppository 100 mg once, Protonix 40 mg daily for GI pro phylaxis Surgery following, s/p cholecystectomy postop day 2 Antibiotics and pain management being handled by general surgery, suggest discontinuing Zosyn, no need for antibiotics on discharge Resolved: #. Lactic acidosis #. ARRON F: NS at 100 cc an hour E: Replete as needed N: Regular diet A: Independently ambulatory at baseline DVT prophylaxis: Lovenox on hold for now, SCDs Code status: Full code Anticipated discharge place: Home Anticipated discharge time: Likely tomorrow Brendan Juan MD PGY-1 IM Dictation was produced using [employer] dictation software. please excuse any grammatical, word or spelling errors. I have seen and evaluated the patient today. Discussed with the resident and agree with the residents finding and plan as documented in the resident's note. Changes highlighted in blue font. Objective - Vital Signs Vital signs: Vital Signs Temp 98.7 F 09/02/24 08:00 Pulse 100 09/02/24 08:00 Resp 18 09/02/24 08:00 BP 142/88 09/02/24 08:00 Pulse Ox 97 09/02/24 08:00 FiO2 Intake & Output 09/01/24 09/02/24 09/02/24 18:59 06:59 18:59 Intake Total 100 200 Output Total 750 Balance 100 -550 Intake: Intake, IV Titration 100 Amount Piperacillin-Tazobactam 3 100 .375 gm In Sodium Chloride 0.9% 100 ml @ 25 mls/hr IVPB Q8H [facility] Rx#: [id number] Oral 200 Output: Urine 750 Other: Voiding Method Toilet Toilet - Labs CBC & Chem 7: 09/02/24 03:09 09/02/24 03:09 Labs: Abnormal Lab Results - Last 24 Hours (Table) 09/02/24 09/02/24 Range/Units 03:09 03:09 WBC 13.70 H (4.50-10.00) X 10*3/uL RBC 4.18 L (4.40-5.60) X 10*6/uL Hgb 12.0 L (13.0-17.0) g/dL Hct 37.0 L (39.6-50.0) % Sodium 133 L (137-145) mmol/L Carbon Dioxide 21 L (22-30) mmol/L BUN 7 L (9-20) mg/dL Glucose 121 H (74-99) mg/dL Calcium 8.1 L (8.4-10.2) mg/dL Total Bilirubin 3.4 H (0.2-1.3) mg/dL AST 100 H (17-59) U/L ALT 99 H (4-49) U/L Alkaline Phosphatase 196 H (38-126) U/L Total Protein 5.4 L (6.3-8.2) g/dL Albumin 2.9 L (3.5-5.0) g/dL
[2024-09-02] MEDS: INDOMETHACIN 100 MG SUPPOSITORY RECTAL ONE (15:29)
[2024-09-02] MEDS: IV FLUID CONTINUATION 1,000 ML IV ONE ×2 (15:53→16:49)
[2024-09-02] MEDS ORDERED: GLYCOPYRROLATE 0.2 MG/ML 2 ML VIAL ONE (16:14)
[2024-09-02] MEDS ORDERED: PROPOFOL 10 MG/ML 20 ML VIAL IV ONE (16:14)
[2024-09-02] MEDS ORDERED: SUCCINYLCHOLINE CHLORIDE 200 MG/10 ML VIAL IV ONE (16:14)
[2024-09-02] MEDS ORDERED: fentaNYL (PF) 50 MCG/ML 2 ML AMP ONE (16:14)
[2024-09-02] MEDS ORDERED: ROCURONIUM 10 MG/ML (5 ML VIAL) IV ONE (16:14)
[2024-09-02] MEDS ORDERED: LIDOCAINE 1% INJ 10MG/ML (20 ML MDV) ONE (16:14)
[2024-09-02] MEDS ORDERED: NEOSTIGMINE 1 MG/ML 10 ML VIAL ONE (16:14)
[2024-09-02] MEDS: IOPAMIDOL-300 30ML BTL INJ ONE (16:49)
--- NOTE | 2024-09-02 16:51 | P.PCN ---
Date of Procedure: 09/02/24 Procedure(s) Performed: Brief history: Patient is a 54 year-old pleasant white male scheduled for an ERCP as part of evaluation of abdominal pain and elevated serum transaminases for the last 2 days' duration. He was admitted to hospital 3 days ago with acute gallstone pancreatitis. Ultrasound of the gallbladder revealed some sludge and gallstones. He underwent gallbladder surgery by Dr. Leos 2 days ago. He continued have persistent symptoms. His LFTs got worse today with a bilirubin of 3.4 and increased ALT and AST into the 100s. Because of clinical suspicion of CBD stone he is scheduled for an ERCP to evaluate further. Procedure performed: ERCP with biliary sphincterotomy and balloon sweep Preoperative diagnoses: Elevated LFTs and jaundice/status post gallbladder surgery 2 days ago for acute gallstone pancreatitis IV sedation per anesthesia: Procedure: After informed consent was obtained from the patient and after the risks benefits and complications including bleeding perforation and pancreatitis explained in detail the patient was brought into the endoscopy unit. The patie nt was placed in prone position and IV conscious sedation was administered by anesthesia under continuous monitoring. The Olympus side-viewing duodenoscope was then inserted into the mouth and esophagus intubated without any difficulty. The scope was gradually advanced into the stomach and duodenum. The major papilla was identified without any difficulty. Initial cannulation resulted in opacification of the pancreatic duct that appeared normal. Subsequent cannulation resulted in opacification of the common bile duct and upon injection of the dye the common bile duct appeared slightly dilated measuring 8 mm in diameter. There was a faint filling defect noted in the distal common bile duct. At this time the catheter was exchanged over the guidewire and a biliary sphincterotome was passed into the common bile duct and a biliary sphincterotomy was performed at 11 o'clock position and was extended to 1 cm. Following this 8 mm mm balloon was passed over the guidewire into the proximal CBD, gently inflated and withdrawn and small amount of sludge was seen exiting the ampulla. No obvious stone was noted. This maneuver was repeated 2 more times with 11.5 mm balloon.. Occlusion cholangiogram was performed. No other filling defects were noted. Patient tolerated the procedure well. Impression: Normal-appearing pancreatic duct Slightly dilated common bile duct measuring about 8 mm in diameter with a faint filling defect in the distal common bile duct status post biliary septotomy and balloon sweep and small amount of sludge was extracted. No stone seen. Recommendations: The findings of this examination were discussed with the patient as well as a family. He was started on clear liquids and repeat labs in the morning. Continue with antibiotics. If labs are improving he can be discharged home tomorrow.
--- NOTE | 2024-09-02 17:09 | FL ---
Fluoroscopy INDICATION: Pain FINDINGS: Fluoroscopy time: 29.7 seconds. Total dose area product (DAP) in uGy*m?, mGy*cm? (or similar): 6.0147 Images obtained: 2. Images document ERCP IMPRESSION: 1. Documentation of fluoroscopy. [facility], , 09/02/2024 5:06 PM
[2024-09-02] MEDS: SODIUM CHLORIDE 0.9% 500 ML 500 ML IV ONE (17:11)
[2024-09-03 02:30] VITALS: RESP 16
[2024-09-03] MEDS: LACTATED RINGERS 1,000 ML IV SCH (03:21)
[2024-09-03 06:10] LABS: Basophils # (A) 0.04 10*3/uL (0.00-0.10); Basophils % (A) 0.3 %; Eosinophils # (A) 0.38 10*3/uL (0.04-0.35); Eosinophils % (A) 2.9 %; HCT 37.8 % (39.6-50.0); HGB 12.9 g/dL (13.0-17.0); Lymphocytes # (A) 1.44 10*3/uL (0.90-5.00); MCH 29.8 pg (27.0-32.0); MCHC 34.1 g/dL (32.0-37.0); MCV 87.3 fL (80.0-97.0); Mean Platelet Volume 9.8 fL (9.5-12.2); Monocytes # (A) 1.43 10*3/uL (0.20-1.00); Neutrophils # (A) 9.66 10*3/uL (1.80-7.70); Platelet Count 226 10*3/uL (140-440); RBC 4.33 10*6/uL (4.40-5.60); RDW 13.1 % (11.5-14.5); WBC 13.05 10*3/uL (4.50-10.00)
[2024-09-03 06:27] LABS: ALT 103 U/L (4-49); AST 61 U/L (17-59); African American GFR (CKD) >90 (>60 ml/min/1.73 sqM); Albumin/Globulin Ratio 1.2; Alkaline Phosphatase 191 U/L (38-126); Anion Gap 10 mmol/L; Blood Urea Nitrogen 9 mg/dL (9-20); Calcium 8.8 mg/dL (8.4-10.2); Carbon Dioxide 24 mmol/L (22-30); Chloride 104 mmol/L (98-107); Globulin 2.6 g/dL; Glucose 103 mg/dL (74-99); Non-African American GFR(CKD) >90 (>60 ml/min/1.73 sqM); Potassium 3.6 mmol/L (3.5-5.1); Sodium 138 mmol/L (137-145); Total Bilirubin 2.2 mg/dL (0.2-1.3); Total Protein 5.6 g/dL (6.3-8.2)
[2024-09-03 07:38] VITALS: BP 136/87; PULSE 75; TEMP 98
--- NOTE | 2024-09-03 08:15 | P.PN ---
Subjective Progress Note Date: 09/03/24 Principal diagnosis: Pancreatitis This a pleasant 54-year-old male who presented to the emergency department last night with complaints of severe sharp abdominal pain in the upper abdomen radiating around to the left side in his back. States that yesterday afternoon he started having some abdominal discomfort but after 9:00 he states that he started having severe pain with nausea and vomiting. He was brought into the emergency department was noted to have elevated AST and ALT as well as a lipase greater than 20,000. He had a ultrasound of the gallbladder that reported s ludge and a possible small gallstone. Fatty liver. Common bile duct measured 0.7 cm. He had a CT of the abdomen pelvis that showed edematous pancreatitis and likely reactive duodenitis. Gastroenterology was consulted for pancreatitis. Patient denies any previous history of pancreatitis. States he is in social drinker may drink a couple days a week. Nothing real heavy. Denies any history of gallbladder issues, no new medications. Patient states abdominal pain improved with pain medication. No further nausea or vomiting. He states he has had "GI issues "for as long as he can remember however over the last 1 year duration feels that he has been getting more gassy and bloating. He he does not follow with a PCP. States he did have a colonoscopy about a year ago in the [place] area and states it was normal. He has no history of upper endoscopy. Admitting labs WBC 19.5 hemoglobin 15.9 hematocrit 46 platelet count 251,000 INR 1.0 sodium 140 potassium 4.0 BUN 22 creatinine 1.5 total bilirubin 1.0 AST 181 ALT 125 alkaline phosphatase 97 lipase greater than 20,000 08/31/2024 Patient seen and examined today as a follow-up. This morning he underwent laparoscopic cholecystectomy. He states abdominal pain is improved. He is currently resting. He ate some fruit this afternoon. No nausea or vomiting. Today's labs WBC 18.6 hemoglobin 14.5 platelets 204,000 total bilirubin 1.3 AST 50 ALT 87 alkaline phosphatase 70 lipase at 1656 09/01/2024 Patient seen and examined today as a follow-up. He is postop day #1 for laparoscopic cholecystectomy. Patient states he still has quite a bit of pain mostly surgical. Still feeling bloated. Not passing gas or having a bowel movement. No nausea or vomiting. Just decreased appetite. Patient was febrile through the night with a max temp of 101.1. WBC 15.3 hemoglobin 13 platelet count 180,000 total bilirubin 0.7 AST 35 ALT 59 alkaline phosphatase 68 09/02/2024 Patient seen and examined today as a follow-up. He continues to have abdominal pain states surgical but also radiating into his back. Continues to have decreased appetite. No bowel movement. Leukocytosis improving. LFTs trending up. Total bilirubin 3.4 AST 100 ALT 99 alkaline phosphatase 196 patient is afebrile. Remains on IV antibiotics. 09/03/2024 Patient seen and examined today as a follow-up. Yesterday he underwent ERCP with slightly dilated common bile duct with faint filling defect in the distal common bile duct status post biliary sphincterectomy and balloon sweep with small amount of sludge extracted but no stone seen. Patient states pain greatly improved. He did not take any pain medication through the night. No nausea or vomiting. Tolerating his diet. He has been afebrile. Labs are trending down today total WBC 13 hemoglobin 12.9 bilirubin 2.2 AST 61 ALT 103 alkaline phosphatase 191 Objective - Vital Signs Vital signs: Vital Signs Temp 98.4 F 09/03/24 02:00 Pulse 90 09/03/24 02:00 Resp 16 09/03/24 02:00 BP 104/67 09/03/24 02:00 Pulse Ox 94 L 09/03/24 02:00 FiO2 Intake & Output 09/02/24 09/02/24 09/03/24 06:59 18:59 06:59 Intake Total 023 523 4958 Output Total 750 2 Balance -868 047 0193 Intake: IV 300 Intake, IV Titration 750 Amount Lactated Ringers 1,000 ml 650 @ 100 mls/hr IV .Q10H MIESHA Rx#:[id number] Piperacillin-Tazobactam 3 100 .375 gm In Sodium Chloride 0.9% 100 ml @ 25 mls/hr IVPB Q8H MIESHA Rx#: [id number] Oral 200 1080 Output: Urine 750 2 Other: Voiding Method Toilet Toilet Toilet # Voids 3 - Exam General appearance: The patient is alert, oriented, appears in no acute distress. HET: Head is normocephalic and atraumatic. Conjunctiva pink. Sclera anicteric. Neck: Supple without lymphadenopathy. Abdomen: Soft, incisions well-approximated, minimal tenderness, nondistended Extremities: Normal skin color and turgor. No pedal edema Skin: No rashes, no jaundice Neurological: No focal deficits. Alert and oriented. - Labs CBC & Chem 7: 09/03/24 05:49 09/03/24 05:49 Labs: Abnormal Lab Results - Last 24 Hours (Table) 09/02/24 09/03/24 09/03/24 Range/Units 03:09 05:49 05:49 WBC 13.70 H 13.05 H (4.50-10.00) X 10*3/uL RBC 4.18 L 4.33 L (4.40-5.60) X 10*6/uL Hgb 12.0 L 12.9 L (13.0-17.0) g/dL Hct 37.0 L 37.8 L (39.6-50.0) % Immature Gran # 0.08 H 0.10 H (0.00-0.04) X 10*3/uL Neutrophils # 10.44 H 9.66 H (1.80-7.70) X 10*3/uL Monocytes # 1.56 H 1.43 H (0.20-1.00) X 10*3/uL Eosinophils # 0.38 H (0.04-0.35) 10*3/uL Glucose 103 H (74-99) mg/dL Total Bilirubin 2.2 H (0.2-1.3) mg/dL AST 61 H (17-59) U/L ALT 103 H (4-49) U/L Alkaline Phosphatase 191 H (38-126) U/L Total Protein 5.6 L (6.3-8.2) g/dL Albumin 3.0 L (3.5-5.0) g/dL Assessment and Plan (1) Acute pancreatitis Narrative/Plan: 54-year-old male presenting with abdominal pain in the epigastric region radiating to the left upper abdomen and back with his significantly elevated lipase on admission greater than 20,000 and elevated AST and ALT. Abdominal ultrasound reports gallbladder sludge and possible stone, however CT abdomen pelvis reports no gallbladder abnormality, but acute pancreatitis. Likely gallstone pancreatitis without evidence at this time choledochal lithiasis. Recommend medical management. Consult to general surgery. Triglycerides ordered. Current Visit: Yes Status: Acute Code(s): K85.90 - ACUTE PANCREATITIS WITHOUT NECROSIS OR INFECTION, UNSP SNOMED Code(s): 037375497 (2) Transaminitis Narrative/Plan: Liver enzymes trending up, continued abdominal pain. Patient had cholelithiasis noted on imaging as well as cholecystectomy. Patient is status post ERCP with b iliary sphincterectomy and balloon Findings of slightly dilated common bile duct, sweep with small amount of sludge extracted but no stone seen. Liver enzymes trending down. Pain improved. Current Visit: Yes Status: Acute Code(s): R74.01 - ELEVATION OF LEVELS OF LIVER TRANSAMINASE LEVELS SNOMED Code(s): 504040467 (3) Cholecystitis Narrative/Plan: Patient s/p laparoscopic cholecystectomy. Leukocytosis, on IV antibiotics. Liver enzymes and lipase improving. Current Visit: Yes Status: Acute Code(s): K81.9 - CHOLECYSTITIS, UNSPECIFIED SNOMED Code(s): 09673112 Plan: 1. Continue symptomatic and supportive care 2. Advance to low-fat diet 3. No further indication for any gastroenterology intervention. 4. Patient is cleared from gastroenterology for discharge if tolerates diet 5. Continue with further recommendations from general surgery Thank you for this consultation, we will sign off at this time. Recommend outpatient follow-up with gastroenterology in [address] Scooby Oliva I agree with the dictator's note, documented as a scribe by Ruth Bermudez.
--- NOTE | 2024-09-03 12:18 | P.DS ---
Providers Date of admission: 08/30/24 06:29 Discharge Diagnosis: Acute pancreatitis secondary to gallstones Transaminitis Non-anion gap metabolic acidosis ARRON Lactic acidosis Hospital Course: Patient is a 54-year-old male with no significant medical history presenting with acute abdominal pain. Patient states the pain started last night at 9 PM and describes it as a sharp, 10/10, abdominal pain located in the upper abdomen that radiates to his back. Patient reports of nausea and 1 episode of nonbloody emesis. Interview patient still with pain in same reason despite being on pain medication. He states he does not have much of an appetite at the moment. Denies any medication changes. Denies having any episodes of pain similar to this. Denies any heavy alcohol use or drug use. Patient states last drink was a week ago. Patient denies any fever, chills, chest pain, shortness of breath, urinary symptoms. EKG independent interpreted displaying sinus tachycardia, rate 106 bpm, QTc 385 Abdominal/pelvis CT intracyst feel edematous pancreatitis, no associated gas or fluid collection, circumferential wall thickening of the duodenum, slightly dilated distal esophagus with reflux fluid Gallbladder ultrasound displaying sludge with possible small stone, fatty liver KUB x-ray displaying no acute findings Labs on admission: Lipase >20,000, WBC 19.52, neutrophils 515.05, immature granulocytes 0.08, CO2 31, BUN 22, creatinine 1.53, lactic acid 2.6 calcium 10.8, AST 181, ALT 125 UA unremarkable with trace urine protein T97.5 F, [place] 126, 24, BP 139/84, O2 saturation 94% on room air ED documentation was reviewed and patient was admitted for acute pancreatitis secondary to gallstones. GI and general surgery were consulted on the case. Patient was treated with fluids and pain management for his acute pancreatitis. He was seen by surgery and decided to go forward with laparoscopic cholecystectomy. Status post cholecystectomy patient still having complaint of pain lab values became worse. GI decided to go forward with ERCP. ERCP showed slightly dilated common bile duct with faint filling defect in the distal common bile duct status post biliary seen sphincterectomy and balloon sweep the small amount of sludge extracted but no stone was seen. Afterwards patient states his pain greatly improved. Denies any nausea and vomiting at this time and is able to tolerate a regular diet. He was cleared by all specialties. Patient is to follow-up with PCP, GI, general surgery. Is being discharged with antibiotics, stool softener and pain medication. He can be discharged home today. Patient seen and examined at bedside. Vital signs reviewed and stable. Physical examination: Vital signs reviewed General: non toxic, no distress, appears at stated age, normal weight Derm: no unusual rashes/lesions, warm Head: atraumatic, normocephalic, symmetric Eyes: EOMI, anicteric sclera, pupils equal round reactive to light ENT: Nose and ears atraumatic Neck: No cervical lymphadenopathy, trachea midline, supple Mouth: no lip lesion, mucus membranes moist Cardiovascular: S1S2 reg, no murmur, positive dorsalis pedis pulse bilateral, no edema Lungs: CTA bilateral, no rhonchi, no rales, no accessory muscle use Abdominal: soft, nontender to palpation, no guarding Ext: muscle strength 5 out of 5 in all 4 extremities grossly, no gross muscle atrophy Neuro: CN II-XI grossly intact, no gross focal neuro deficits Psych: Alert, oriented to person, place, and time A total of greater than 30 minutes of time were spent preparing this complex discharge summary. Patient was discharge on September 03, 2024 at 10:38 AM. Brendan Juan MD PGY-1 IM Dictation was produced using [employer] dictation software. please excuse any grammatical, word or spelling errors. I have seen and evaluated the patient today. Discussed with the resident and agree with the residents finding and plan as documented in the resident's note. Changes highlighted in blue font. Expected date of discharge: 09/03/24 Attending physician: Serafin Almeida MD Consults: 08/30/24 06:28 Consult Physician Urgent Consulting Provider: Nayana Oliva Consult Reason/Comments: Pancreatitis Do you want consulting provider notified?: Yes 08/30/24 12:57 Consult Physician Routine Consulting Provider: Rayo Leos Consult Reason/Comments: Gallstone pancreatitis Do you want consulting provider notified?: Yes Primary care physician: Shaun Rivas Patient Condition at Discharge: Stable Plan - Discharge Summary Discharge Rx Participant: No New Discharge Prescriptions: New HYDROcodone/APAP 5-325MG [[place] 5-325] 1 tab PO Q6HR PRN 3 Days #12 tab PRN Reason: Pain Docusate [Colace] 100 mg PO BID #30 capsule Amoxic-Pot Clav 875-125Mg [Augmentin 875-125] 1 tab PO Q12HR 5 Days #10 tab Discharge Medication List Amoxic-Pot Clav 875-125Mg [Augmentin 875-125] 1 tab PO Q12HR 5 Days #10 tab 09/03/24 [Rx] Docusate [Colace] 100 mg PO BID #30 capsule 09/03/24 [Rx] HYDROcodone/APAP 5-325MG [[place] 5-325] 1 tab PO Q6HR PRN 3 Days #12 tab 09/03/24 [Rx] Follow up Appointment(s)/Referral(s): Nayana Oliva MD [STAFF PHYSICIAN] - 10 Days (please call the office to schedule a follow up appointment. ) Juventino Gentile DO [STAFF PHYSICIAN] - 1-2 days Rayo Leos MD [STAFF PHYSICIAN] - 09/21/24 1:50 pm Patient Instructions/Handouts: ERCP (Endoscopic Retrograde Cholangiopancreatography) (DC) Activity/Diet/Wound Care/Special Instructions: [place] as needed for pain Shower daily. No bath soaks for 2 weeks NO lifting over 10 lbs until seen by surgeon Light activity until seen by surgeon Discharge Disposition: HOME SELF-CARE
--- NOTE | 2024-09-03 13:39 | P.PN ---
Subjective Progress Note Date: 09/03/24 SURGICAL PROGRESS NOTE CHIEF COMPLAINT: Gallstone pancreatitis HISTORY OF PRESENT ILLNESS: Patient is postop day #3 status post laparoscopic cholecystectomy. Patient is status post ERCP with GI service that reported slight dilated common bile duct with faint filling defect in the distal common bile duct status post biliary septotomy with balloon sweep and small amount of sludge was extracted. No stone seen. Patient's LFTs and total bilirubin are trending down. His pain is much better. He is tolerating diet. And he feels ready for discharge. Afebrile. WBC 13.05 PHYSICAL EXAM: VITAL SIGNS: Reviewed. GENERAL: Well-developed in no acute distress. ABDOMEN: Distended. Epigastric right upper quadrant left upper quadrant tenderness. Incisions clean dry and intact NEUROLOGIC: Alert and oriented. Cranial nerves II through XII grossly intact. ASSESSMENT: 1. Gallstone pancreatitis 2. Cholecystitis 3. Elevated total bilirubin and LFTs. Possible choledocholithiasis. PLAN: -Patient can be discharged from surgical standpoint -Patient discharged with antibiotics Physician Garland Machine Operator note has been reviewed by physician. Signing provider agrees with the documented findings, assessment, and plan of care. Objective - Vital Signs Vital signs: Vital Signs Temp 98 F 09/03/24 07:37 Pulse 75 09/03/24 07:37 Resp 16 09/03/24 07:37 BP 136/87 09/03/24 07:37 Pulse Ox 95 09/03/24 07:37 FiO2 Intake & Output 09/02/24 09/03/24 09/03/24 18:59 06:59 18:59 Intake Total 300 1830 Output Total 2 Balance 300 1828 Intake: IV 300 Intake, IV Titration 750 Amount Lactated Ringers 1,000 ml 650 @ 100 mls/hr IV .Q10H MIESHA Rx#:[id number] Piperacillin-Tazobactam 3 100 .375 gm In Sodium Chloride 0.9% 100 ml @ 25 mls/hr IVPB Q8H MIESHA Rx#: [id number] Oral 1080 Output: Urine 2 Other: Voiding Method Toilet Toilet Toilet # Voids 3 - Labs CBC & Chem 7: 09/03/24 05:49 09/03/24 05:49 Labs: Abnormal Lab Results - Last 24 Hours (Table) 09/03/24 09/03/24 Range/Units 05:49 05:49 WBC 13.05 H (4.50-10.00) 10*3/uL RBC 4.33 L (4.40-5.60) 10*6/uL Hgb 12.9 L (13.0-17.0) g/dL Hct 37.8 L (39.6-50.0) % Immature Gran # 0.10 H (0.00-0.04) 10*3/uL Neutrophils # 9.66 H (1.80-7.70) 10*3/uL Monocytes # 1.43 H (0.20-1.00) 10*3/uL Eosinophils # 0.38 H (0.04-0.35) 10*3/uL Glucose 103 H (74-99) mg/dL Total Bilirubin 2.2 H (0.2-1.3) mg/dL AST 61 H (17-59) U/L ALT 103 H (4-49) U/L Alkaline Phosphatase 191 H (38-126) U/L Total Protein 5.6 L (6.3-8.2) g/dL Albumin 3.0 L (3.5-5.0) g/dL
--- NOTE | 2024-09-06 16:03 | CDI ---
Documentation Clarification Form Date: 09/06/2024 03:33:58 PM From: Anahi Plasencia RN, CCDS Email: [email or web address] Admit Date: 08/30/2024 06:29:00 AM Patient Name: Amaury Christina Visit Number: [id number] Discharge Date: 09/03/2024 11:14:00 AM ATTENTION: The Clinical Documentation Specialists (CDI) and [facility] Coding Staff appreciate your assistance in clarifying documentation. Please respond to the clarification below the line at the bottom and electronically sign. The CDI & [facility] Coding staff will review the response and follow-up if needed. Please note: Queries are made part of the Legal Health Record. If you have any questions, please contact the author of this message via ITS. Doctor Giovanna Kwan The patient had tachycardia and leukocytosis. Based on this information and the findings below, is there an additional diagnosis that is clinically appropriate for this patient? History/Risk Factors: DM. Presented with epigastric abdominal pain. Admitted with acute pancreatitis secondary to gallstones. S/P lap cholecystectomy and ERCP Clinical Indicators: 08/29 VS: HR 126 RR 22 08/30 WBC 19.52 Cr 1.53-1.27 AST 181 ALT 125 Lactic acid 2.6 Lipase >51653 08/30 CT A/P: Interstitial edematous pancreatitis. No associated gas or fluid collection 08/30 H&P: "ARRON improving with fluid management, creatinine down from 1.53 to 1.27." 08/30 GI: " Acute pancreatitis. Transaminitis." 09/03 Discharge summary: "Acute pancreatitis secondary to gallstones. Transaminitis. Non-anion gap metabolic acidosis. ARRON. Lactic acidosis." Treatment: s/p cholecystectomy; LR @100mL/hr; 1L 0.9 NS IV bolus x2 on 08/30 then 100mL/hr 08/30-09/02 Is there an additional diagnosis that is clinically appropriate for this patient? [ x ] Non-infectious SIRS from acute pancreatitis causing ARRON and lactic acidosis [ ] Non-infectious SIRS from acute pancreatitis not causing ARRON and lactic acidosis [ ] No additional diagnosis/not clinically significant [ ] Other, please specify [ ] Unable to determine SIRS Criteria: 2 or more of the following may indicate SIRS Temperature < 96.8F (36C) or > 101.0F (38.3C) Heart Rate > 90 bpm Respiratory Rate > 20 breaths/min or PaCO2 < 32 mmHg White Blood Cell Count > 12,000 or < 4,000 cells/mm3 or > 10% bands MTDD
== END 2024-09-03 11:14 | disposition home or self-care (01) | DRG 417 ==
LOC: EC 22:15 → 5NMEDONC 08-30 06:29
PROVIDERS: ADMIT Internal Medicine; ATTEND Internal Medicine
PROC: 0FT44ZZ Resection of Gallbladder, Percutaneous Endoscopic Approach (ICD-10-PCS; principal; 2024-08-31 07:30)
PROC: BF101ZZ Fluoroscopy of Bile Ducts using Low Osmolar Contrast (ICD-10-PCS; 2024-09-02)
PROC: 0F798ZZ Dilation of Common Bile Duct, Via Natural or Artificial Opening Endoscopic (ICD-10-PCS; 2024-09-02)
DX: K85.10 Biliary acute pancreatitis without necrosis or infection (principal); R65.11 Systemic inflammatory response syndrome (SIRS) of non-infectious origin with acute organ dysfunction; E87.20 Acidosis, unspecified; N17.9 Acute kidney failure, unspecified; K29.80 Duodenitis without bleeding; E11.9 Type 2 diabetes mellitus without complications; K76.0 Fatty (change of) liver, not elsewhere classified; K91.86 Retained cholelithiasis following cholecystectomy; K21.9 Gastro-esophageal reflux disease without esophagitis; R00.0 Tachycardia, unspecified; F17.200 Nicotine dependence, unspecified, uncomplicated; K82.8 Other specified diseases of gallbladder; Z28.310 Unvaccinated for COVID-19; Z88.5 Allergy status to narcotic agent
CPT/HCPCS: 36415; 43262; 74018; 74177; 74330; 76705; 76770; 80053; 81003; 83605; 83690; 83735; 84478; 85025; 85610; 85730; 88304; 93005; 96361; 96365; 96367; 96375; 96376; 99291